=== PATIENT | female | born 1945 | race African-American/Black ===

== ENCOUNTER 2017-01-29 23:37 | Inpatient (IN) | payer OTHER, BC ==
[~2017-01-29] VITALS: Ht 160 cm; Wt 95.7 kg
--- NOTE | ~2017-01-29 | 2DMMODE ---
[facility] [email or web address] [address] 2 D/M-MODE ECHOCARDIOGRAM Name: EMKISHA J Room #: 207-P ADM IN ..#: [id number] Admission: 01/30/17 Attend Phys: Elza Steele MD Discharge: Date of : 43 Date of Service: 01/30/17 1124 Report #: [id number] THIS REPORT FOR: //name// APPROVED REPORT EXAM: Comprehensive 2D, Doppler, and color-flow Echocardiogram Patient Location: Bedside/Room 207 Blood Pressure: 149/85 mmHg HR: 62 bpm Rhythm: NSR Other Information Study Quality: Good Indications Chest Pain Hx: DM, HTN 2D Dimensions RVDd: 40.53 mm LVEF(%): 58.26 (>50%) IVSd: 13.55 (7-11mm) LVOT Diam: 21.88 (18-24mm) LVDd: 44.50 mm PWd: 12.70 (7-11mm) Ascending Aorta: 34.76 mm LVDs: 30.89 (25-40mm) Aortic Root: 33.00 mm Rosado's LVEF: 58.26 % Volumes Left Atrial Volume (Systole) Single Plane 4CH: 82.45 mL Single Plane 2CH: 46.79 mL LA ESV Index: 33.00 mL/m2 Aortic Valve AoV Peak Marco.: 1.26 m/s AO Peak Gr.: 6.36 mmHg LV Max P.44 mmHg LV Max: 1.05 m/s Mitral Valve MV PHT: 104.96 ms MV E Max Marco.: 0.83 m/s E/A Ratio: 0.9 MV A Marco.: 0.97 m/s MV Decel. Time: 361.92 ms [facility] [place] [place] [address] 2 D/M-MODE ECHOCARDIOGRAM Name: KISHA STRICKLAND Room #: 207-[facility] IN [facility].#: [id number] Admission: 01/30/17 Attend Phys: Elza Steele MD Discharge: Date of : 43 Date of Service: 01/30/17 1124 Report #: [id number] TDI E/Lateral E': 22.00 E/Medial E': 16.00 Pulmonary Valve PV Peak Marco.: 0.99 m/s PV Peak Gr.: 3.95 mmHg Tricuspid Valve TR Peak Marco.: 2.28 m/s RAP Estimate: 5.00 mmHg TR Peak Gr.: 20.74 mmHg RVSP: 26.00 mmHg Left Ventricle The left ventricle is normal size. There is normal LV segmental wall motion. Mild concentric left ventricular hypertrophy. Left ventricular systolic function is normal. LVEF is 55-60%. Grade I - abnormal relaxation pattern. Right Ventricle The right ventricle is normal size. The right ventricular systolic function is normal. Atria The left atrium size is normal. The right atrium size is normal. Aortic Valve Aortic valve is mildly calcified. No aortic regurgitation is present. There is no aortic valvular stenosis. Mitral Valve Mitral valve leaflets are normal. Trace mitral regurgitation. Tricuspid Valve The tricuspid valve is normal in structure. There is mild tricuspid regurgitation. The right atrial pressure is estimated at 5 mmHg. Right ventricular systolic pressure is estimated at 26 mmHg. Pulmonic Valve The pulmonary valve is normal in structure. Mild to moderate pulmonic regurgitation. Great Vessels The aortic root is normal in size. IVC is normal in size and collapses >50% with inspiration. [facility] [address] [place] [address] 2 D/M-MODE ECHOCARDIOGRAM Name: KISHA STRICKLAND Room #: 207-P [facility] IN .R.#: [id number] Admission: 01/30/17 Attend Phys: Elza Steele MD Discharge: Date of : 43 Date of Service: 01/30/17 1124 Report #: [id number] Pericardium There is no pericardial effusion. <Conclusion> Mild concentric left ventricular hypertrophy. Grade I diastolic dysfunction LVEF is 55-60%. There is normal LV segmental wall motion. Aortic valve is mildly calcified. No aortic stenosis or regurgitation. Mitral valve leaflets are normal. Trace mitral regurgitation. Pulmonary artery pressure could not be relliably ascertained. There is no pericardial effusion. <ELECTRONICALLY SIGNED> By: Jl Mckeon MD, FACC 01/30/17 1124 1124 1124 Jl Mckeon MD, [facility] /INF
--- NOTE | ~2017-01-29 | EKG ---
[place] [address] [facility] [employer] [place] [address] ELECTROCARDIOGRAM REPORT Name: KISHA STRICKLAND Room #: 207-P ADM IN M.R.#: [id number] Admission: 01/30/17 Attend Phys: Elza Steele MD Discharge: Date of : 43 Report #: [id number] THIS REPORT FOR: //name// 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
--- NOTE | ~2017-01-29 | EKG ---
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
--- NOTE | ~2017-01-29 | CATHLAB ---
[facility] [place] [address] INVASIVE PROCEDURE REPORT Name: EMKISHA Melissa Room #: 207-P [facility] IN [facility]#: [id number] Admission: 01/30/17 Attend Phys: Elza Steele MD Discharge: 02/02/17 Date of : 43 Date of Service: 02/02/17812 Report #: [id number] THIS REPORT FOR: //name// CC: Eder Steele PROCEDURE: Left heart coronary angiography. INDICATIONS: Chest pain, abnormal stress study, unstable angina. DESCRIPTION OF PROCEDURE: The potential benefits and risks of the procedure were discussed at length with the patient who understood. Full written and informed consent was obtained. The patient was brought into the catheterization suite where her right groin was prepped and draped in a sterile fashion. She was sedated with intravenous Versed, 1% Xylocaine was used as local anesthetic. A 6-Congolese sheath was placed in the right femoral artery by the modified Seldinger technique. Left heart catheterization was performed with a 6-Congolese angled pigtail catheter. A single plain ventriculogram was performed in the PARK projection. Pullback gradients were measured across the aortic valve. Selective coronary angiography was performed with a 6-Congolese left and right 4 cm Torie coronary catheter. All diagnostic catheters removed. A hand injection was performed through the right groin sheath with placement of a Mynx device upon removal of the sheath. The patient remained in excellent condition at the conclusion of the procedure with good right groin hemostasis and intact distal pulses. RESULTS: LEFT HEART HEMODYNAMICS: 1. Left ventricular systolic pressure 160. 2. Left ventricular end diastolic pressure of 18. 3. Aortic valve, no gradient was present on pullback across the aortic valve, central aortic pressure 160/70. ANGIOGRAPHY: LEFT VENTRICULOGRAM: Ventriculography demonstrated normal global and regional left ventricular systolic function, mitral regurgitation was absent. Ejection fraction was estimated at 65%. SELECTIVE CORONARY ANGIOGRAPHY: 1. Left main: Left main was large in caliber and normal. 2. Left anterior descending: The left anterior descending was a large vessel that extended to the inferior apex. The LAD exhibited minimal plaquing proximally. 3. Left main gave rise to a moderate sized ramus branch, this vessel appeared to be angiographically normal. 4. The circumflex was large and codominant. Circumflex gave rise to 2 marginal branches. There is minimal midvessel plaquing in the circumflex. Otherwise, [facility] [address] [place] [address] INVASIVE PROCEDURE REPORT Name: KISHA STRICKLAND Room #: 207-P [facility] IN ..#: [id number] Admission: 01/30/17 Attend Phys: Elza Steele MD Discharge: 02/02/17 Date of : 43 Date of Service: 02/02/17 0813 Report #: [id number] the circumflex and its 2 marginal branches were angiographically normal. 5. Right coronary: The right coronary had a high anterior takeoff. There was minimal midvessel plaquing evident; otherwise, the right coronary was normal. SUMMARY: 1. Normal global and regional left ventricular systolic function, mitral regurgitation was absent, ejection fraction of 65%. 2. Normal left main. 3. Minimal plaquing in the coronary tree. This was a codominant circulation. <ELECTRONICALLY SIGNED> By: Jl Mckeon MD, FACC 02/03/17 0810 0813 0928 Jl Mckeon MD, FACC /nt
--- NOTE | ~2017-01-29 | HC ---
[facility] [place] [address] CONSULTATION Name: KISHA STRICKLAND Room #: 207-P ADM IN M.R.#: [id number] Admission: 01/30/17 Attend Phys: Elza Steele MD Discharge: Date of : 43 Report #: [id number] THIS REPORT FOR: //name// CC: Eder Steele REASON FOR CONSULTATION: Chest pain. HISTORY OF PRESENT ILLNESS: The patient is a 71-year-old woman with a history of hypertension, longstanding diabetes. She has a history of recurrent deep venous thrombosis one with pulmonary emboli in 2011 for which she has been maintained on warfarin therapy. Last Monday, she had an episode of chest discomfort. This occurred while she was eating breathlessness and lasted for about 10 minutes. This was not associated with other symptoms. On Monday night around 11:00 p.m. she reported a similar episode of "grinding" chest discomfort. This was not associated with radiation, nausea, vomiting or diaphoresis. She presented to the Emergency Department, was treated with aspirin and nitroglycerin with relief. She denies a history of myocardial infarction. She does have a history of remote congestive heart failure in the . She denies orthopnea or paroxysmal nocturnal dyspnea. No bleeding problems with warfarin. No history of near syncope or syncope. ALLERGIES: PENICILLIN, SULFA, LATEX, TRAMADOL AND CEFTIN. MEDICATIONS: Include warfarin 5 mg daily, metoprolol 25 mg twice daily and aspirin 81 mg daily, metformin 500 mg twice daily, amlodipine 10 mg daily, potassium 20 mEq twice daily, furosemide 40 mg daily, Singulair 10 mg daily, Symbicort 2 puffs twice daily, Flonase, levothyroxine 112 mcg daily. PAST MEDICAL HISTORY: Medical records have been reviewed and include history of hysterectomy, deep venous thrombosis with pulmonary emboli in 2011, 2 years prior to this, she had a deep venous thrombosis, bladder suspension, lumpectomy, knee replacement. SOCIAL HISTORY: Nonsmoker, nondrinker. . FAMILY HISTORY: Notable for mother who had strokes. REVIEW OF SYSTEMS: All systems negative except as that noted above. PHYSICAL EXAMINATION: GENERAL: A pleasant woman in no distress. VITAL SIGNS: Blood pressure is 100/80, heart rate is 73 and regular. She is afebrile, 216 pounds, 5 feet 3 inches tall. HEENT: There are neither xanthelasma, subcutaneous xanthomata, oral mucosal or digital cyanosis or kyphoscoliosis present. CHEST: Clear to auscultation and percussion. [address] [address] CONSULTATION Name: KISHA STRICKLAND Room #: [address] [place] [address] IN M.R.#: [id number] Admission: 01/30/17 Attend Phys: Elza Steele MD Discharge: Date of : 43 Report #: [id number] CARDIOVASCULAR: Regular rate and rhythm with normal S1, S2. No murmurs or rubs. ABDOMEN: Soft and nontender. EXTREMITIES: Without cyanosis, clubbing or edema. Radial pulses are 2+. NEUROLOGIC: She is alert with a nonfocal exam. LABORATORY DATA: EKG normal sinus rhythm, normal tracing. Sodium 141, potassium 4.5, creatinine 0.9. ProBNP of 313, cholesterol 204. LDL 145. INR of 2.5. Her admitting INR was 4.9. Her warfarin has been held. White cell count 8.7, hemoglobin 12.1, hematocrit 36, platelet count 255, hemoglobin A1c of 5.8. Recent two day stress study suggested anterior apical ischemia. IMPRESSION: 1. Chest pain with mixed features for ischemia. 2. Large hiatal hernia. 3. Diabetes. 4. Hypertension. 5. Dyslipidemia. 6. Deep venous thrombosis and pulmonary embolism following back surgery. 7. Asthma. RECOMMENDATIONS: 1. Reverse coagulopathy. 2. Coronary angiography. 3. Addition of statin therapy. I have discussed the angiographic procedure in detail including its associated risks. After a thorough discussion of the procedure, its risks and alternatives and after answering her questions in detail she is agreeable to proceeding. Thank you for asking me to participate in her care. <ELECTRONICALLY SIGNED> By: Jl Mckeon MD, FACC 02/02/17 0805 1745 0745 Jl Mckeon MD, FACC /nt
[~2017-01-29 23:37] MED LIST: ACIDOPHILUS PR1 EACH PO; ALBUTEROL2.5 MG/31 INH; AMLODIPINE BESY10 MG PO; APAP650 PO; ASPIRIN EC325 M1 PO; BACLOFEN 10MG T10 M1 PO; BAYER ASPIRIN325 M1 PO; CENTRUM COMPLE1 EACH PO; CITRACAL + D C1 EACH PO; COLACE100 MG PO; COUMADIN 5 MG TA5 M1 PO; D3 DOTS2000 UNIT PO; EDARBI80 MG PO; ESTER-C 500 MG1 EAC1 PO; FIBER0.52 G1 PO; FLAX SEED OIL1000 MG PO; FLONASE 0.05%50 MCG NASAL; GLUCOPHAGE500 MG PO; GLUCOSAMINE1000 MG PO; HYDROCHLOROTHIA25 M1 PO; IRON PO; IRON325 PO; K-DUR 20 MEQ T20 MEQ PO; LASIX 20 MG TAB20 MG; LASIX 40 MG TAB40 M2 PO; MAGNESIUM/ZINC PO; NORCO 5-325 TA1 EACH PO; OMEGA 3-6-9 CO1 EACH PO; PERCOCET 5-3251 EACH PO; PRILOSEC 20 MG20 MG PO; PROTONIX40 M1 PO; PT DOES NOT KNOW; ROVIN-CF OF TA1 EACH PO; SINGULAIR 10 MG10 M1 PO; SLO-NIACIN500 MG PO; SYMBICORT160 MCG/4. INH; SYNTHROID137 MCG PO; TOPICORT15 G2 TOP; TYLENOL325 MG PO; VALACYCLOVIR1000 MG PO; VENTOLIN HFA INH8 GM INH; VITAMIN B-12500 MCG PO; VITAMIN B12 PO; ZYRTEC 10 MG TA10 M1 PO; [UNRECOGNIZED DRUG - SUPPLY] MC
[2017-01-29] MEDS ORDERED: MEDROLDOSEPACK PO (23:44)
[2017-01-30 00:19] LABS: HEMATOCRIT 36.8 % (37.0-47.0); HEMOGLOBIN 12.1 gm/dL (12.0-15.0); PLATELET COUNT 255 thou/uL (150-400); RBC 3.91 mil/uL (4.20-5.00); WBC 8.7 thou/uL (4.0-11.0)
[2017-01-30 00:21] LABS: MANUAL DIFF YES
[2017-01-30 00:43] LABS: APTT 36.1 Seconds (24.5-32.8); PROTIME 50.2 Seconds (9.3-11.4)
[2017-01-30 00:49] LABS: INR 4.9
[2017-01-30 00:52] LABS: ALBUMIN 3.4 g/dL (3.4-5.0); ALKALINE PHOSPHATASE 59 U/L (46-116); ANION GAP 7 mmol/L (7-16); CALCIUM 10.2 mg/dL (8.5-10.1); CHLORIDE 101 mmol/L (98-107); CK-MB MASS 1.3 ng/mL (<0.5-3.6); CO2 29 mmol/L (21-32); CREATININE 0.9 mg/dL (0.6-1.3); GLUCOSE 130 mg/dL (70-99); MAGNESIUM 2.1 mg/dL (1.8-2.4); NT-PRO BRAIN NAT PEPTIDE 313 pg/mL (<300); POTASSIUM 4.5 mmol/L (3.5-5.1); SGOT 11 U/L (15-37); SGPT 21 U/L (30-65); SODIUM 137 mmol/L (136-145); TOTAL BILIRUBIN 0.2 mg/dL (<0.1-1.0); TOTAL PROTEIN 6.6 g/dL (6.4-8.2); TROPONIN-I < 0.04 ng/mL (<0.04-0.07)
[2017-01-30 01:06] LABS: BUN 24 mg/dL (7-18)
[2017-01-30] MEDS ORDERED: LOPRESSOR25 PO (01:55)
[2017-01-30] MEDS ORDERED: CETIRIZINE HCL10 MG PO (02:00)
[2017-01-30] MEDS ORDERED: ASPIR 8181 MG PO (02:01)
[2017-01-30] MEDS ORDERED: LEVOTHYROXIN0.112 M1 PO (02:04)
[2017-01-30 02:52] LABS: ABSOLUTE NEUTROPHILS 6.4 thou/uL (1.4-8.2); ANISOCYTOSIS 1+; ATYPICAL LYMPHS 1 %; TOTAL CELL COUNT 100
[2017-01-30 06:42] LABS: CHOLESTEROL 204 mg/dL (<200); HDL CHOLESTEROL 51 mg/dL (>40); LDL CHOLESTEROL 145 mg/dL (<100); TRIGLYCERIDE 41 mg/dL (<150); VLDL 8 mg/dL (<40)
[2017-01-30 06:43] LABS: SERUM ASSESSMENT Clear
[2017-01-30 23:11] LABS: GLYCOHEMOGLOBIN (HGB A1C) 5.8 % (4.8-5.6)
[2017-01-31 04:18] LABS: INR 4.4; PROTIME 45.2 Seconds (9.3-11.4)
[2017-01-31 09:47] LABS: URINE BILIRUBIN NEGATIVE (Negative); URINE BLOOD NEGATIVE (Negative); URINE COLOR YELLOW; URINE GLUCOSE-RANDOM* NEGATIVE (Negative); URINE KETONES NEGATIVE (Negative); URINE LEUKOCYTES-REFLEX NEGATIVE (Negative); URINE PROTEIN (DIPSTICK) NEGATIVE (Negative); URINE SPECIFIC GRAVITY 1.015 (1.003-1.035); URINE UROBILINOGEN 0.2 E.U./dl (0.2-1.0)
[2017-02-01 03:53] LABS: PROTIME 25.5 Seconds (9.3-11.4)
[2017-02-01 03:54] LABS: INR 2.5
[2017-02-02 04:01] LABS: INR 1.6; PROTIME 16.1 Seconds (9.3-11.4)
== END 2017-02-02 16:38 | disposition home or self-care (01) | DRG 392 ==
LOC: ER 23:37 → 2N 01-30 01:15 → EROBS 01-30 01:15 → 2N 01-30 01:40
PROVIDERS: Emergency Medicine; Nurse Practitioner Acute Care
DX: K21.9 Gastro-esophageal reflux disease without esophagitis (principal); I10 Essential (primary) hypertension; E11.9 Type 2 diabetes mellitus without complications; J45.909 Unspecified asthma, uncomplicated; Z86.718 Personal history of other venous thrombosis and embolism; Z86.711 Personal history of pulmonary embolism; Z90.710 Acquired absence of both cervix and uterus; Z88.2 Allergy status to sulfonamides; Z88.8 Allergy status to other drugs, medicaments and biological substances; Z88.0 Allergy status to penicillin; Z91.040 Latex allergy status; Z82.49 Family history of ischemic heart disease and other diseases of the circulatory system; Z83.3 Family history of diabetes mellitus; Z80.8 Family history of malignant neoplasm of other organs or systems; Z82.3 Family history of stroke
CPT/HCPCS: 10081

== ENCOUNTER → 2019-02-27 | Outpatient (CLI) | payer OTHER, BC ==
[~2019-02-27] MED LIST changes: +ASPIR 8181 MG PO; +CETIRIZINE HCL10 MG PO; +LEVOTHYROXIN0.112 M1 PO; +LOPRESSOR25 PO; +MEDROLDOSEPACK PO
== END ==
LOC: RAD 11:21
DX: J45.998 Other asthma (principal); J98.4 Other disorders of lung; K44.9 Diaphragmatic hernia without obstruction or gangrene

== ENCOUNTER → 2019-03-05 | Outpatient (CLI) | payer OTHER, BC ==
--- NOTE | 2019-03-05 11:38 | 2DMMODE ---
[facility] [place] [address] 2 D/M-MODE ECHOCARDIOGRAM Name: KISHA STRICKLAND Room #: [facility]#: [id number] ������������� Admission: 03/05/19 ������������� Attend Phys: Supa Cheatham, Discharge: ��� ������������� ��� Date of : 43 Date of Service: 03/05/19 1138 �� Report #: [id number] �������� ��������������������������������������������[id number] THIS REPORT FOR: //name// APPROVED REPORT Study performed: 03/05/2019 08:56:37 EXAM: Comprehensive 2D, Doppler, and color-flow Echocardiogram Patient Location: Out-Patient Status: routine BSA: 1.90 HR: 68 bpm BP: 140/98 mmHg Rhythm: NSR Other Information Study Quality: Excellent Indications Short of breath, pulmonary HTN. Hx: HTN, DM. 2D Dimensions RVDd: 40.10 mm IVSd: 12.00 (7-11mm) LVOT Diam: 22.35 (18-24mm) LVDd: 45.48 mm PWd: 12.00 (7-11mm) Ascending Ao: 33.05 (22-36mm) LVDs: 32.60 (25-40mm) Aortic Root: 33.08 mm Volumes Left Atrial Volume (Systole) Single Plane 4CH: 66.78 mL Single Plane 2CH: 76.82 mL LA ESV Index: 40.00 mL/m2 Aortic Valve AoV Peak Marco.: 1.24 m/s AO Peak Gr.: 6.13 mmHg LVOT Max P.81 mmHg LVOT Max V: 0.98 m/s ADRIANA Vmax: 3.09 cm2 Mitral Valve E/A Ratio: 1.3 MV Decel. Time: 192.06 ms MV E Max Marco.: 1.21 m/s [facility] [employer] [address] [address] 2 D/M-MODE ECHOCARDIOGRAM Name: YORDANKARLEYKISHA MIR Room #: [facility]#: [id number] ������������� Admission: 03/05/19 ������������� Attend Phys: Supa Cheatham, Discharge: ��� ������������� ��� Date of : 43 Date of Service: 03/05/19 1138 �� Report #: [id number] �������� ��������������������������������������������[id number] MV A Marco.: 0.96 m/s MV PHT: 55.70 ms IVRT: 96.89 ms Pulmonary Valve PV Peak Marco.: 0.85 m/s PV Peak Gr.: 2.86 mmHg Pulmonary Vein P Vein S: 0.41 m/s P Vein A: 0.27 m/s P Vein D: 0.46 m/s P Vein A Dur.: 92.3 msec P Vein S/D Ratio: 0.89 Tricuspid Valve TR Peak Marco.: 3.12 m/s RAP Estimate: 10.00 mmHg TR Peak Gr.: 38.88 mmHg Left Ventricle The left ventricle is normal size. There is normal LV segmental wall motion. Mild concentric left ventricular hypertrophy. Left ventricular systolic function is normal. LVEF is 55-60%. Moderate diastolic dysfunction is present (pseudonormal filling). Right Ventricle The right ventricle is normal size. The right ventricular systolic function is normal. Atria Left atrium is mildly dilated. Right atrium is at the upper limits of normal. Aortic Valve Aortic valve is trileaflet, mildly calcified. No aortic regurgitation is present. There is no aortic valvular stenosis. Mitral Valve The mitral valve is normal in structure. Mild mitral regurgitation. Tricuspid Valve The tricuspid valve is normal in structure. Mild to moderate tricuspid regurgitation. Estimated PAP is 45mmHg. Pulmonic Valve The pulmonary valve is normal in structure. Mild pulmonic regurgitation. [address] [address] 2 D/M-MODE ECHOCARDIOGRAM Name: KISHA STRICKLAND Room #: REG [place]#: [id number] ������������� Admission: 03/05/19 ������������� Attend Phys: Supa Cheatham, Discharge: ��� ������������� ��� Date of : 43 Date of Service: 03/05/19 1138 �� Report #: [id number] �������� ��������������������������������������������[id number] Great Vessels The aortic root is normal in size. The ascending aorta is normal in size. IVC is normal in size and collapses >50% with inspiration. Pericardium Trivial pericardial effusion noted. <Conclusion> The left ventricle is normal size. Mild concentric left ventricular hypertrophy. Left ventricular systolic function is normal. Moderate diastolic dysfunction is present (pseudonormal filling). The right ventricle is normal size. Left atrium is mildly dilated. Aortic valve is trileaflet, mildly calcified. Mild mitral regurgitation. Mild to moderate tricuspid regurgitation. Estimated PAP is 45mmHg. ��������������������������������������������� <ELECTRONICALLY SIGNED> ���������������������������������������� By: Tyrone Andrade MD ��������������������������������������������� 03/05/19 1138 1138 1138 Tyrone Andrade MD /INF
== END ==
LOC: CV 08:31
DX: I08.8 Other rheumatic multiple valve diseases (principal); I11.9 Hypertensive heart disease without heart failure; I27.20 Pulmonary hypertension, unspecified; E11.9 Type 2 diabetes mellitus without complications

== ENCOUNTER → 2019-03-12 | Outpatient (CLI) | payer OTHER, BC | LOC: CAT 10:37 | DX: J98.4 Other disorders of lung (principal); J98.11 Atelectasis; I25.10 Atherosclerotic heart disease of native coronary artery without angina pectoris; I70.0 Atherosclerosis of aorta; K44.9 Diaphragmatic hernia without obstruction or gangrene; Z88.8 Allergy status to other drugs, medicaments and biological substances; Z88.2 Allergy status to sulfonamides; Z88.0 Allergy status to penicillin; Z91.011 Allergy to milk products; M25.78 Osteophyte, vertebrae ==

== ENCOUNTER 2020-07-06 14:45 | Inpatient (IN) | payer OTHER, BC ==
[~2020-07-06] VITALS: Ht 160 cm; Wt 69.9 kg
[2020-07-06 14:49] VITALS: BP 102/62
[2020-07-06 15:43] LABS: ABSOLUTE NEUTROPHILS 5.1 thou/uL (1.4-8.2); BASOPHILS 0.8 % (0.0-2.0); EOSINOPHILS 0.7 % (0.0-3.0); HEMATOCRIT 30.7 % (37.0-47.0); HEMOGLOBIN 10.3 gm/dL (12.0-15.0); LYMPHOCYTES 11.6 % (24.0-44.0); MCH 34.4 pg (26.0-34.0); MCHC 33.5 g/dL (28.0-37.0); MCV 102.8 fL (80.0-100.0); MONOCYTES 3.4 % (1.0-8.0); PLATELET COUNT 247 thou/uL (150-400); POLYS 83.5 % (36.0-66.0); RBC 2.98 mil/uL (4.20-5.00); WBC 6.1 thou/uL (4.0-11.0)
[2020-07-06 15:53] LABS: CALCIUM 9.4 mg/dL (8.5-10.1); CREATININE 0.7 mg/dL (0.6-1.0); POTASSIUM 4.3 mmol/L (3.5-5.1)
[2020-07-06 15:59] LABS: ALBUMIN 2.2 g/dL (3.4-5.0); TOTAL BILIRUBIN 0.6 mg/dL (0.2-1.0)
[2020-07-06 17:54] LABS: INR 1.3
[2020-07-06 20:15] VITALS: BP 106/63
[2020-07-06 20:34] VITALS: BP 105/54
[2020-07-06 21:15] VITALS: BP 120/65
--- NOTE | 2020-07-07 00:48 | NUR ---
PT CAME UP TO FLOOR AT AROUND 2100 HOURS, SHE IS ALERT AND ORIENTED X 4. ANSWERED ALL ADMISSION QUESTIONS. PT HAS EXTREME SOA EVEN ON 2L/NC, BUT SHE IS SATTING AT 100%. NO FEVER. 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 SKIN IS INTACT. IV ABTS STARTED WELL FLUIDS AND STEROIDS. PT DENIES PAIN, SHE ONLY C/O DYSPEPSIA, MEDICATION ORDERS IN PLACE.BSC COMMODE PROVIDED. ADMIT ACCUCHECK WAS 104. PT PLACED ON FALL PREC AND EDUCATION PROVIDED. SHE EXPRESSES UNDERSTANDING. WILL CONTINUE WITH POC TILL EOS.
[2020-07-07 04:25] VITALS: BP 109/69
[2020-07-07 05:18] LABS: HEMOGLOBIN 10.3 gm/dL (12.0-15.0); MCH 34.5 pg (26.0-34.0); MCHC 33.1 g/dL (28.0-37.0); MCV 104.3 fL (80.0-100.0); RBC 2.97 mil/uL (4.20-5.00); RDW 15.7 % (10.5-14.5); WBC 6.5 thou/uL (4.0-11.0)
[2020-07-07 05:33] LABS: CALCIUM 9.6 mg/dL (8.5-10.1); CREATININE 0.7 mg/dL (0.6-1.0); POTASSIUM 4.5 mmol/L (3.5-5.1)
[2020-07-07 08:15] VITALS: BP 121/66
--- NOTE | 2020-07-07 15:16 | NUR ---
ASSUMED PATIENT CARE AT 0700. A/O X4. PROGRESSING TOWARD POC. WILL DC TO [facility] WITH HH SOON.
--- NOTE | 2020-07-07 15:54 | NUR ---
CM called pt's room to complete initial assessment and discuss d/c planning. Pt A&O. Pt lives at home w/spouse. Pt has 3 adult dtrs that are supportive and help out when needed. Pt states she is active, "I have a flower garden, but I didn't do anything with this year" d/t failing health. Pt drives, is independent w/ADLs. Pt has walker, cane and nebulizer. Pt has hx w/[facility] and SNF. Pt's goal at d/c is to return home w/spouse whom she said is in good health. CM to cont to follow to assist as needed. -Note completed by Dana Perera
--- NOTE | 2020-07-07 16:08 | EKG ---
[facility] [place] [address] ELECTROCARDIOGRAM REPORT Name: KISHA STRICKLAND Room #: 353-P ADM IN M.R.#: [id number] Admission: 07/06/20 Attend Phys: Alhaji Oquendo MD Discharge: Date of : 43 Report #: [id number] THIS REPORT FOR: cc: Eder Hills MD, David A. MD Couchonnal, Luis F. 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
--- NOTE | 2020-07-07 18:58 | NUR ---
ASSUMED PATIENT CARE AT 0700. A/O X4. GENERLIZED WEAKNESS. VSS. AFEBRILE. TOLERATED ON 2L/NC. SLOWLY TOWARDS POC GOALS.
[2020-07-07 19:35] VITALS: BP 109/67
[2020-07-08 04:45] VITALS: BP 99/68
[2020-07-08 05:35] LABS: HEMATOCRIT 27.3 % (37.0-47.0); HEMOGLOBIN 9.1 gm/dL (12.0-15.0); MCH 34.7 pg (26.0-34.0); MCHC 33.1 g/dL (28.0-37.0); MCV 104.6 fL (80.0-100.0); RBC 2.61 mil/uL (4.20-5.00); RDW 15.7 % (10.5-14.5); WBC 7.6 thou/uL (4.0-11.0)
[2020-07-08 05:50] LABS: CALCIUM 9.1 mg/dL (8.5-10.1); CREATININE 0.8 mg/dL (0.6-1.0); POTASSIUM 4.4 mmol/L (3.5-5.1)
--- NOTE | 2020-07-08 06:28 | NUR ---
Assisted to commode after shift change , she does get short of breath with exertion. Maintaining O2 sat in the upper 90's on 3L/NC. Pt. also c/o that she still has chest tightness that's been going on for days. Bed alarm on for safety and SCD's in place. C/O upset stomach and requested for nausea med and immodium . Zofran IV given with good relief. Immodium given per her request. She stated when she's up to commode , she has no control of her bowels due to procedure last December. No other concerns voiced.
[2020-07-08 07:22] VITALS: BP 123/71
--- NOTE | 2020-07-08 14:21 | NUR ---
SW reviewed chart and spoke with nursing and attending physician. Pt remains in Enhanced Isolation to r/o COVID-19. Awaiting second COVID test results. Pt is afebrile and on 3L of O2. Pt is on IV abx and IV steroids. Plan is for pt to discharge home when medically stable. SW is following to assist as needed with discharge planning.
[2020-07-08 16:06] VITALS: BP 93/55
--- NOTE | 2020-07-08 16:42 | NUR ---
ASSUMED CARE OF PT AT 0700. PT AOX4 IN NO ACUTE DISTRESS. 3L NC - COARSE LUNG SOUNDS - SOA W/ MINIMAL EXERTION. VITALS STABLE. GOOD APEPTITE. CALLS APPROPRIATELY. COVID RESULTS PENDING.
[2020-07-08 19:44] VITALS: BP 122/69
[2020-07-08 20:20] VITALS: BP 149/70
[2020-07-09 03:30] VITALS: BP 113/61
--- NOTE | 2020-07-09 07:54 | NUR ---
Slept intermittently during the night. O2 at 3L/NC , still gets short of breath with minimal exertion and some chest tightness . Up with assist to commode , very weak and gets tired easily. Afebrile. Decrease appetite per pt. Bed alarm on.
[2020-07-09 08:23] VITALS: BP 113/71
--- NOTE | 2020-07-09 13:19 | NUR ---
ADINA reviewed chart and spoke with nursing and attending physician. Pt remains in Enhanced Isolation to r/o COVID-19. Therapy evals are on hold until results of repeat COVID test are available. Pt is afebrile and on 3L of O2. Pt is on IV abx and IV steroids. SW spoke with pt via phone. Pt is not normally on O2 at home. Pt has used [facility] in the past and would be agreeable with HH if needed. Pt's PCP is Dr. Eder Hills. ADINA is following to assist as needed with discharge plannin.
[2020-07-09 16:02] VITALS: BP 116/62
--- NOTE | 2020-07-09 16:29 | NUR ---
PT'S COVID WAS NEGATIVE FROM 07/06/20 TEST, PT IS ON O2 3L/MIN/NC, BUT PT HAS SOB WITH ACTIVITIES, AND PT STILL FEELS WEAK, RN HAS REPORTED TO AROLDO JEFFREY , NEW ORDER , PT HAS SECOND COVID TEST DONE AT 1520PM.
--- NOTE | 2020-07-09 16:34 | NUR ---
PT IS A&OX3, PT IS O2 O2 3L/MIN/NC, PT'S VS ARE STABLE, PT IS CONTIUNING IV ABX, PT HAS SOB WITH ACTIVIES, PT DEIES PAIN AT THIS TIME.
[2020-07-09 19:47] VITALS: BP 124/69
[2020-07-10 04:42] VITALS: BP 123/49
[2020-07-10 05:17] LABS: HEMATOCRIT 30.1 % (37.0-47.0); HEMOGLOBIN 9.8 gm/dL (12.0-15.0); MCH 34.2 pg (26.0-34.0); MCHC 32.7 g/dL (28.0-37.0); MCV 104.5 fL (80.0-100.0); RBC 2.88 mil/uL (4.20-5.00); RDW 15.5 % (10.5-14.5); WBC 7.2 thou/uL (4.0-11.0)
[2020-07-10 05:27] LABS: CALCIUM 9.3 mg/dL (8.5-10.1); CREATININE 0.7 mg/dL (0.6-1.0); POTASSIUM 4.5 mmol/L (3.5-5.1)
[2020-07-10 07:21] VITALS: BP 134/74
--- NOTE | 2020-07-10 07:38 | NUR ---
Pt. stated she slept fair during the night. Still has generalized weakness and gets short of breath with minimal exertion.Up with assist to commode. Urine sample sent to lab this am. O2 at 3L/NC and maintaining O2 sat in the mid to upper 90's. H1N1 swab sent to lab this am. Pt. informed that a sputum sample is needed , sterile cup provided. Pt. also verbalized she still does not have much appetite.
[2020-07-10 08:15] LABS: URINE BILIRUBIN NEGATIVE (Negative); URINE BLOOD NEGATIVE (Negative); URINE CLARITY CLEAR; URINE COLOR YELLOW; URINE GLUCOSE-RANDOM* NEGATIVE (Negative); URINE KETONES NEGATIVE (Negative); URINE LEUKOCYTES NEGATIVE (Negative); URINE NITRITE NEGATIVE (Negative); URINE PROTEIN (DIPSTICK) TRACE (Negative); URINE SPECIFIC GRAVITY 1.025 (1.005-1.035)
[2020-07-10 09:47] VITALS: BP 122/52
--- NOTE | 2020-07-10 14:11 | NUR ---
SW reviewed chart and spoke with nursing. Pt remains in Enhanced Isolation to r/o COVID-19. Repeat test is pending. Pt is afebrile and requiring 2-3 L of O2. Pt is on IV lasix, IV abx, IV steroids. Cardiology consulted. Therapy evals ordered and on hold until COVID results are available. Pt may transfer off 3W if results are negative. Pt is not normally on O2 at home and will need rest/exercise oximetry prior to discharge. ADINA is following to assist as needed with discharge planning.
[2020-07-10 15:05] VITALS: BP 118/65
[2020-07-10 16:06] LABS: IgA 44 mg/dL (64-422); IgG 757 mg/dL (586-1602); IgM 13 mg/dL (26-217)
--- NOTE | 2020-07-10 17:57 | NUR ---
ASSUMED PATIENT CARE AT 0700. A/O X4. GENERLIZED WEAKNESS. UP WITH ASSISTED. TITRATED O2 TO 2L. SOLWLY TOWARDS POC GOALS.
[2020-07-10 19:39] VITALS: BP 111/65
--- NOTE | 2020-07-10 20:09 | NUR ---
1900 assumed care of pt. 1999 BASELINE ASSESSMENT COMPLETED, PT RESTING QUIETLY ALERT AND ORIENTED, RESP UNLABORED SEE ASSESSMENT FOR MORE DETAIL.
[2020-07-10 23:06] LABS: HIV ANTIBODY Non Reactive (Non Reactive)
[2020-07-11 06:14] VITALS: BP 112/71
[2020-07-11 08:18] VITALS: BP 125/70
--- NOTE | 2020-07-11 12:15 | 2DMMODE ---
[facility] [place] [address] 2 D/M-MODE ECHOCARDIOGRAM Name: KISHA STRICKLAND Room #: 353-P ADM IN M.R.#: [id number] Admission: 07/06/20 Attend Phys: Alhaji Oquendo MD Discharge: Date of : 43 Report #: [id number] THIS REPORT FOR: cc: Eder Hills MD, David A. MD Lammoglia, Francisco J. MD ~ APPROVED REPORT Study performed: 07/11/2020 09:36:37 EXAM: Comprehensive 2D, Doppler, and color-flow Echocardiogram Patient Location: Bedside Room #: 353 BSA: 1.73 HR: 71 bpm BP: 112/71 mmHg Rhythm: NSR Other Information Study Quality: Good Indications Diabetes Dyspnea Hypertension/HDD Hx PE 2D Dimensions RVDd: 37.01 mm IVSd: 10.82 (7-11mm) LVOT Diam: 20.91 (18-24mm) LVDd: 33.13 mm PWd: 12.61 (7-11mm) Ascending Ao: 32.64 (22-36mm) LVDs: 21.92 (25-40mm) Aortic Root: 30.20 mm IVC: 17.00 mm Volumes Left Atrial Volume (Systole) Single Plane 4CH: 113.63 mL Single Plane 2CH: 64.91 mL LA ESV Index: 53.00 mL/m2 Aortic Valve AoV Peak Marco.: 1.14 m/s AO Peak Gr.: 5.16 mmHg LVOT Max P.66 mmHg [facility] [address] [address] 2 D/M-MODE ECHOCARDIOGRAM Name: KISHA STRICKLAND Room #: 353-P [facility] IN M.R.#: [id number] Admission: 07/06/20 Attend Phys: Alhaji Oquendo MD Discharge: Date of : 43 Report #: [id number] LVOT Max V: 0.96 m/s ADRIANA Vmax: 2.89 cm2 Mitral Valve E/A Ratio: 2.9 MV Decel. Time: 225.68 ms MV E Max Marco.: 1.14 m/s MV A Marco.: 0.39 m/s MV PHT: 65.45 ms IVRT: 86.51 ms Pulmonary Valve PV Peak Marco.: 0.79 m/s PV Peak Gr.: 2.48 mmHg Pulmonary Vein P Vein S: 0.21 m/s P Vein A: 0.22 m/s P Vein D: 0.52 m/s P Vein A Dur.: 107.3 msec P Vein S/D Ratio: 0.40 Tricuspid Valve TR Peak Marco.: 3.46 m/s RAP Estimate: 5.00 mmHg TR Peak Gr.: 47.75 mmHg PA Pressure: 53.00 mmHg Left Ventricle The left ventricle is normal size. There is normal LV segmental wall motion. Mild concentric left ventricular hypertrophy. The left ventricular systolic function is normal. The left ventricular ejection fraction is within the normal range. LVEF is 60%. Severe diastolic dysfunction is present (restrictive filling). Right Ventricle The right ventricle is normal size. The right ventricular systolic function is normal. Atria Left atrium is moderately dilated. Right atrium is at the upper limits of normal. Aortic Valve Aortic valve is mildly calcified. No aortic regurgitation is present. There is no aortic valvular stenosis. Mitral Valve The mitral valve is normal in structure. Trace mitral regurgitation. No evidence of mitral valve stenosis. [facility] [address] [place] [address] 2 D/M-MODE ECHOCARDIOGRAM Name: KISHA STRICKLAND Room #: 353-P [facility] IN .R.#: [id number] Admission: 07/06/20 Attend Phys: Ahlaji Oquendo MD Discharge: Date of : 43 Report #: [id number] Tricuspid Valve The tricuspid valve is normal in structure. Mild to moderate tricuspid regurgitation. PAP is estimated at 53 mmHg. Pulmonic Valve The pulmonary valve is normal in structure. Mild pulmonic regurgitation. Great Vessels The aortic root is normal in size. IVC is normal in size and collapses >50% with inspiration. Pericardium Trace pericardial effusion noted. Also present on previous echo 03/05/2019. <Conclusion> The left ventricle is normal size. LVEF is 60%. The left ventricle is normal size. LVEF is 60%. Left atrium is moderately dilated. Aortic valve is mildly calcified. The mitral valve is normal in structure. Trace mitral regurgitation. The tricuspid valve is normal in structure. Mild to moderate tricuspid regurgitation. PAP is estimated at 53 mmHg. The pulmonary valve is normal in structure. Mild pulmonic regurgitation. Trace pericardial effusion noted. Also present on previous echo 03/05/2019. <ELECTRONICALLY SIGNED> By: Gio Sheikh MD 07/11/20 1215 1215 1215 Gio Sheikh MD /INF
--- NOTE | 2020-07-11 14:37 | NUR ---
PT REPORTS CONTINUING TO FEEL WEAK. ENCOURAGED TO CONTINUE ACTIVITY TOLERATED. PT UP TO CHAIR FOR MUCH OF SHIFT. RESTING FREQUENTLY BETWEEN MEALS AND CARES. CALLS FOR ASSIST APPROPRIATELY. FALL PRECAUTIONS IN PLACE. PT EXHIBITING DECREASED APPETITE THIS SHIFT. OFFERED FOOD CHOICES TO ENCOURAGE NUTRITION.
[2020-07-11 15:10] VITALS: BP 104/63
[2020-07-11 19:36] VITALS: BP 127/83
--- NOTE | 2020-07-12 00:40 | NUR ---
1900 ASSUMED CARE OF PT AFTER BEDSIDE REPORT. 2029 BASELINE ASSESSMENT COMPLETED, SEE ASSESSMENT, FALL PRECAUTIONS IN PLACE, SCDS IN PLACE WILL CONTINUE TO MONITOR. [address] BROUGHT TO PT BY FAMILY AND PT ATE SOME OF IT FOR HS SNACK.
[2020-07-12 08:20] VITALS: BP 123/73
--- NOTE | 2020-07-12 11:52 | NUR ---
PT CARE ASSUMMED AT 0700, PT ALERT AND ORIENTED X4, DENIES CHEST PAIN, NAUSEA AND VOMITTING. PT IS ON 2L OF NC, NO SIGNS OF DISTRESS. PT IS UP TO COMMODE WITH 1 ASSIST, CONTINUE TO BE WEAK. CALL LIGHT AND TABLE IN REACH. BED AT LOWEST, WILL CONTINUE TO MONITOR.
[2020-07-12 19:25] VITALS: BP 110/46
[2020-07-13 06:07] VITALS: BP 114/64
[2020-07-13 08:00] VITALS: BP 101/64
--- NOTE | 2020-07-13 08:11 | NUR ---
Pt. stated she slept well during the night. Verbalized breathing is getting better , she's getting her strength back little by little and getting her appetite back too. Afebrile.Up with assist to commode. Making progress towards care plan goals.
[2020-07-13 11:11] VITALS: BP 100/57
--- NOTE | 2020-07-13 11:47 | NUR ---
PT CARE ASSUMED AT 0700, PT ALERT AND ORIENTED X4, PT DENIES ANY PAIN. P[T CLEANUP, GOWN AND BED CHANGED. PT IS UP IN THE CHAIR. CHAIR ALARM ON. PT 2ND COVID CAME BACK NEGATIVE, PRAKASH AWARE. PT IS OFF ISOLATION. HOUSE SUPIVISOR MADE AWAY. WAITING FOR A BED SURG BED FOR PT. CALL LIGHT AND TABLE WITHIN REACH. WILL CONTINUE TO MONITOR.
--- NOTE | 2020-07-13 14:01 | NUR ---
SW reviewed chart and spoke with nursing and attending physician. Pt remains in Enhanced Isolation to r/o COVID-19. Repeat tests are pending. Pt may transfer off 3W pending test results. SW spoke with pt via phone. Pt states she is feeling better today. PT/OT to work with pt today. SW discussed possible discharge needs with pt: post-acute placement v. home with HH. Pt also asked about outpatient therapy. SW discussed the differences in levels of care. Pt verbalized understanding. Pt has been to [facility] in the past and used [facility]. Pt states she does not want to be in a facility if her family cannot come see her. SW explained visitor restrictions for SNF. SW explained that therapy will evaluate her today and assist with recommendation for discharge needs. Pt verbalized understanding. SW is following to assist as needed with discharge planning.
[2020-07-13 15:14] VITALS: BP 94/58
[2020-07-13 20:20] VITALS: BP 110/76
[2020-07-13 23:06] LABS: HISTOPLASMA MYCELIAL-ID Negative (Negative)
--- NOTE | 2020-07-14 04:16 | NUR ---
PATIENT TRANSFERED TO THE UNIT AT AROUND 0020. ASSESSMENT DONE WNL.PATIENT IS ON 1L OF OXYGEN. NO SOA OR DISTRESS NOTED THIS SHIFT. PATIENT ASLEEP AT THIS TIME BREATHING REGULAR AND UNLABOURED.
[2020-07-14 06:30] VITALS: BP 123/83
[2020-07-14 07:20] VITALS: BP 120/78
[2020-07-14 10:11] VITALS: BP 120/78
[2020-07-14 11:05] LABS: HEMATOCRIT 34.6 % (37.0-47.0); HEMOGLOBIN 11.1 gm/dL (12.0-15.0); MCH 33.3 pg (26.0-34.0); MCHC 32.2 g/dL (28.0-37.0); MCV 103.4 fL (80.0-100.0); RBC 3.34 mil/uL (4.20-5.00); RDW 15.7 % (10.5-14.5); WBC 7.4 thou/uL (4.0-11.0)
[2020-07-14 11:15] LABS: CALCIUM 9.9 mg/dL (8.5-10.1); CREATININE 0.6 mg/dL (0.6-1.0); POTASSIUM 3.7 mmol/L (3.5-5.1)
[2020-07-14] MEDS ORDERED: AZITHROMYCIN500 M1 IV (13:38)
[2020-07-14] MEDS ORDERED: ENOXAPARIN30 MG/0.1 SUBQ (13:38)
[2020-07-14] MEDS ORDERED: AZACTAM 1 GM VIA1 G1 IV (13:38)
[2020-07-14] MEDS ORDERED: PREDNISONE 20 M20 M1 PO (13:38)
--- NOTE | 2020-07-14 15:41 | NUR ---
PT HAS BEEN ACCEPTED TO [facility] ACUTE INPATIENT [facility]. CARE TEAM INDICATED SHE IS MEDICALLY STABLE TO DC THIS DAY. PT IS AWARE AND AGREEABLE. CM SPOKE WITH PT'S SPOUSE TRACY IS ALSO AWARE AND AGREEABLE. PT TO DC TO [facility] THIS AFTERNOON.
--- NOTE | 2020-07-14 16:05 | NUR ---
PATIENT ACCEPTED BY 5N FOR ACUTE REHAB STAY. TRAILER STEERER SPOKE WITH PATIENT ABOUT EXPECTATION AND REQUIREMENTS. GAVE REHAB BROCHURE. PATIENT TO ADMIT TO [facility] THIS AFTERNOON, 07/14/20. THANK YOU FOR THIS REFERRAL.
--- NOTE | 2020-07-14 18:36 | NUR ---
Assumed pt care this am, stayed on the recliner for most of the day. diet and medeications are well tolerated. ONe IV removed and I kept since IV abx are to be continued. POC followed with no signs or verbalizations of distress noted. Report given to Melba david pt is to dc and go to room 550.
[2020-07-15 21:05] LABS: HISTOPLASMA MYCELIAL-CF Negative (Neg:<1:2)
== END 2020-07-14 18:43 | DRG 193 ==
LOC: ER 14:45 → EROBS 17:27 → 3W 17:27 → 4W 07-14 02:15
PROVIDERS: Internal Medicine; Internal Medicine Pulmonary Disease; Specialist; Student in an Organized Health Care Education/Training Program; ADMIT Hospitalist; ATTEND Hospitalist
DX: J15.9 Unspecified bacterial pneumonia (principal); J96.01 Acute respiratory failure with hypoxia; E03.9 Hypothyroidism, unspecified; M19.90 Unspecified osteoarthritis, unspecified site; E11.9 Type 2 diabetes mellitus without complications; I10 Essential (primary) hypertension; R53.81 Other malaise; J45.909 Unspecified asthma, uncomplicated; I95.9 Hypotension, unspecified; G89.29 Other chronic pain; D50.9 Iron deficiency anemia, unspecified; K58.9 Irritable bowel syndrome, unspecified; E73.9 Lactose intolerance, unspecified; B96.0 Mycoplasma pneumoniae [M. pneumoniae] as the cause of diseases classified elsewhere; B34.9 Viral infection, unspecified; Z96.652 Presence of left artificial knee joint; Z20.828 Contact with and (suspected) exposure to other viral communicable diseases; Z90.710 Acquired absence of both cervix and uterus; Z86.718 Personal history of other venous thrombosis and embolism; Z86.711 Personal history of pulmonary embolism; Z79.01 Long term (current) use of anticoagulants; Z79.82 Long term (current) use of aspirin; Z79.899 Other long term (current) drug therapy; Z88.0 Allergy status to penicillin; Z88.2 Allergy status to sulfonamides; Z88.8 Allergy status to other drugs, medicaments and biological substances; Z91.040 Latex allergy status
CPT/HCPCS: 10879

== ENCOUNTER → 2020-07-06 | Outpatient (CLI) | payer OTHER, BC | LOC: RAD 13:32 | PROVIDERS: ATTEND Internal Medicine | DX: R91.8 Other nonspecific abnormal finding of lung field (principal); J45.50 Severe persistent asthma, uncomplicated ==

== ENCOUNTER 2020-07-14 13:06 | Inpatient (IN) | payer OTHER, BC ==
[~2020-07-14] VITALS: Ht 160 cm; Wt 75.5 kg
--- NOTE | ~2020-07-14 | PLAN ---
[facility] [place] [address] REHAB UNIT PLAN OF CARE Name: KISHA STRICKLAND Room #: 505-P ADM IN M.R.#: [id number] Admission: 07/14/20 Attend Phys: Eder Miller MD Discharge: Date of : 43 Report #: [id number] THIS REPORT FOR: //name// CC: Eder Hills DATE OF SERVICE: 07/17/2020 PROGRESS NOTE/OVERALL PLAN OF CARE SUBJECTIVE: The patient was seen back today in followup. She is alert, afebrile. Vital signs are stable. Cooperative. Lower extremity examination, no change noted from prior exam as far as volitional muscle testing. No calf swelling. Transfers are mod assist. Gait is contact guard 35 feet, 4-wheeled walker. In occupational therapy, lower body dressing is mod assist. Lmxq-[id number] comprehensive deficits. ASSESSMENT: 1. Medical complexity with generalized debilitation. 2. Pulmonary rehabilitation with acute respiratory failure. 3. Pneumonia. 4. Asthma. 5. Diabetes mellitus type 2. 6. Hypertension. 7. Hypothyroidism. 8. Degenerative arthritis. PLAN: The overall plan of care is based on the preadmission screen, post-admission physician evaluation and information garnered from therapy assessments. 1. Estimated length of stay is probably at least 7-10 days. 2. Medical prognosis is reasonably good. 3. Anticipated interventions includes the interdisciplinary acute inpatient rehabilitation program. 4. Anticipated functional outcomes would be for the patient to improve as far as functional mobility and ADLs and ambulation, so that she can hopefully return back to her prior living situation. 5. Discharge destination would include going back home with her , one step. Premorbid single point cane ambulator. 6. Expected therapy by discipline includes PT, OT and speech. She has been seen by speech for communication and cognition issues. Noted to have [id number] cognitive deficits with severe memory deficits. 7. Expected therapy by discipline includes PT, OT and speech 1 hour per day [address] [address] REHAB UNIT PLAN OF CARE Name: KISHA STRICKLAND Room #: 505-P [facility] IN ..#: [id number] Admission: 07/14/20 Attend Phys: Eder Miller MD Discharge: Date of : 44 Report #: [id number] each 5 days a week throughout the duration of the acute inpatient rehabilitation program. By: [id number] Eder Miller MD /[facility]
--- NOTE | ~2020-07-14 | HC ---
[facility] [place] [address] CONSULTATION Name: KISHA STRICKLAND Room #: 505-P [facility] IN M.R.#: [id number] Admission: 07/14/20 Attend Phys: Eder Miller MD Discharge: 07/30/20 Date of : 43 Report #: [id number] THIS REPORT FOR: cc: Eder Hills MD, David A. MD McKittrick, Richard James MD ~ CC: Jl Mckeon MD [facility] Efrem Cheatham MD REFERRING CLINICIAN: ____ REASON FOR CONSULTATION: Thrombocytopenia. HISTORY OF PRESENT ILLNESS: The patient is a very pleasant 74-year-old female who was originally admitted back on 07/06/2020. At that time, her platelet count was 247,000. Note that on 07/15/2020, it was 278,000; on 07/20/2020, 162,000; on 07/24/2020, 100,000; 07/28/2020, 88,000; today on 07/29/2020, 83,000. During the same time, her white count has been mostly the same though it has been slightly lower the last couple of days. Before admission, it usually ran in the 4-6 range; on admission here was 6100. Differential has been normal. Her MCV has been a little bit high since she was admitted though I do note that her B12, folate and liver functions are normal. Hopefully, this is just related to stress on her body, though there is a small possibility could be related to liver disease or an evolving myelodysplasia. Reviewed her medications and anything that she was high risk on, she is off of and her current medications were mostly begun or at low risk after the platelets began to drop. It is also vaguely possible that this should be related to a PPI, which can cause blood dyscrasias, but she reports being on them for a year or two. On the other hand, it might be reasonable to consider switching to Pepcid. The patient denies any bleeding, any family history of blood difficulties. REVIEW OF SYSTEMS: The patient denies fevers or chills. Does have some chronic leg swelling, she says no worse than usual. No new blood in the urine or stool. PAST MEDICAL HISTORY: Notable for DVT and I think she said about 2003 then again in 2011, on chronic anticoagulation since that time, like she is on Coumadin for great deal of time and switched to Eliquis within the past year. Also history of diabetes type 2, hypertension, lung disease followed by Dr. Mark Cheatham; also, hysterectomy, knee replacement, and laminectomy. ALLERGIES: Reportedly to PENICILLIN, SULFA, LATEX, TRAMADOL AND CEFUROXIME. [address] [address] CONSULTATION Name: KISHA STRICKLAND Room #: 505-P DIS IN M.R.#: [id number] Admission: 07/14/20 Attend Phys: Eder Miller MD Discharge: 07/30/20 Date of : 43 Report #: [id number] CURRENT MEDICATIONS: Include metronidazole 500 t.i.d. began on the , metoprolol 25 daily, amlodipine 2.5 daily, MiraLax 17 g daily, loperamide 2 mg q. 6 hours p.r.n., phenylephrine and mineral oil 2 g rectally q.4 hours p.r.n., furosemide 40 b.i.d., vitamin D 1000 units daily, potassium chloride 20 mEq b.i.d., apixaban 5 b.i.d., loratadine 10 daily, B12 of 500 mcg daily, levothyroxine 112 mcg daily, montelukast 10 mg daily, budesonide 0.5 mg respiratory therapy b.i.d., Tylenol p.r.n., pantoprazole had been received, but will probably be stopped. PHYSICAL EXAMINATION: GENERAL: The patient appears her stated age. She is eating breakfast, is considered reliable historian. MOOD: She is alert and pleasant. VITAL SIGNS: Recent height is 5 feet 3 inches, which is 160 cm. Recent weight is 166.5 pounds or 75.5 kilograms. Blood pressure is 120/73, O2 sat 92%, respirations 16, pulse 93, temperature 97.7. HEENT: Nose and pharynx without any blood or unusual or any petechiae. LUNGS: Mostly clear. There is some soft rhonchi centrally that clear with slight clearing of her throat. HEART: Appears regular rate. LYMPHATICS: No enlarged lymph nodes in the supraclavicular, cervical, axillary or inguinal region. Legs have some slight edema, right slightly worse than left. She says this is normal lately for her. ABDOMEN: No masses. EXTREMITIES: Without clubbing or cyanosis. Note that there is some edema with right slightly worse than left, but she says it is no worse than usual. RADIOLOGIC STUDIES: Note the patient had a CAT scan of the last year without any upper abdominal abnormalities. Had an ultrasound in 2017 without any hepatosplenomegaly. ASSESSMENT AND PLAN: 1. Thrombocytopenia, unclear etiology with normal B12, folate. No evidence of clot or bleeding, do agree with changing acid corine, could consider Pepcid for a while, though it is not real likely. This also could be involving in bone marrow disorder, though not likely with increase in MCV. We will need to watch this closely. Doubt it is hemolyzing as total bilirubin has been normal during admission. Follow serially. 2. History of deep venous thrombosis and pulmonary embolism. Continue apixaban, might consider decreasing or stopping, if platelets become the 20-30 range. 3. Mild anemia, probably anemia of chronic illness. 4. Respiratory difficulties. Continues inhalation therapies. 5. Hypertension, meds per others. 6. Hypothyroid, meds per others. [facility] [address] [address] CONSULTATION Name: KISHA STRICKLAND Room #: 505-P DIS IN M.R.#: [id number] Admission: 07/14/20 Attend Phys: Eder Miller MD Discharge: 07/30/20 Date of : 43 Report #: [id number] 7. Weakness. Continue with rehab efforts per others, will be available if questions arise. By: [id number] Adam Pond MD /nt
--- NOTE | ~2020-07-14 | H ---
[facility] [place] [address] HISTORY AND PHYSICAL Name: KISHA STRICKLAND Room #: 505-P ADM IN M.R.#: [id number] Admission: 07/14/20 Attend Phys: Eder Miller MD Discharge: Date of : 43 Report #: [id number] THIS REPORT FOR: cc: Eder Hills MD,Eder Miller,Eder Sagastume MD ~ CC: Eder Hills DATE OF SERVICE: 07/14/2020 HISTORY AND PHYSICAL AND POST-ADMISSION PHYSICIAN EVALUATION HISTORY OF PRESENT ILLNESS: The patient is a 74-year-old -[place] female, who was originally admitted to [facility] on 07/06/2020 with worsening shortness of breath and chest x-ray findings of ground-glass opacities. She was noted to have respiratory failure, placed on IV Lasix, IV steroids, IV antibiotics b.i.d., Lovenox prophylaxis, and nasal cannula O2. Gradually has improved as far as her hospital course, but is quite weak and debilitated. She has had a significant drop from her premorbid functional level. She has had solutions consultant physicians involved with Infectious Disease and Pulmonary Medicine as well as Hospitalist Service. She has now been admitted for acute in-hospital inpatient rehabilitation. She was noted to be COVID negative x 2. PAST MEDICAL HISTORY: Includes diabetes mellitus, hypertension, and lung disease. PAST SURGICAL HISTORY: Includes hysterectomy, total knee replacement, and laminectomy. MEDICATIONS: Please see the full medication listing. ALLERGIES: PENICILLIN, SULFA, LATEX, TRAMADOL AND CEFUROXIME. SOCIAL HISTORY: Lives at home with her , one step, premorbid single point cane ambulator, was independent with ADLs, shares IADLs. REVIEW OF SYSTEMS: No current complaints of chest pain, shortness of breath or abdominal discomfort. HABITS: No history of drug or alcohol abuse. Nonsmoker. PHYSICAL EXAMINATION: GENERAL: She is a pleasant 74-year-old -[place] female in no obvious distress. [address] [address] HISTORY AND PHYSICAL Name: KISHA STRICKLAND Room #: 505-P [facility] IN M.R.#: [id number] Admission: 07/14/20 Attend Phys: Eder Miller MD Discharge: Date of : 43 Report #: [id number] VITAL SIGNS: Last recorded temperature 97.9, pulse 66, respirations 20, and blood pressure 113/78. NEUROLOGIC: The patient is alert. She is oriented. She is not currently on nasal prong O2. HEENT: Facies are symmetric. CHEST: Decreased breath sounds throughout. CARDIOVASCULAR: Sounded regular rate and rhythm. ABDOMEN: Bowel sounds positive, nontender. GENITOURINARY AND RECTAL: Deferred. She follows basic commands, is pleasant, conversant, appropriate. Cranial nerves appear to be intact. EXTREMITIES: Functional range of motion of both upper extremities and lower extremities strength is probably a grade 3+ to 4-/5. DTRs are trace to 1. No focal calf swelling. The patient functionally has been transferring with min assist and short distance front-wheeled walker ambulation. ASSESSMENT: A 74-year-old -E[place]ian female with the following problem list: 1. Medical complexity with generalized debilitation. 2. Pulmonary rehabilitation with acute respiratory failure. 3. Pneumonia. 4. Asthma. 5. Diabetes mellitus type 2. 6. Hypertension. 7. Hypothyroidism. 8. Degenerative arthritis. PLAN: The patient has been admitted for acute in-hospital inpatient rehabilitation. From a post-admission physician evaluation perspective, there are no relevant changes since the preadmission screening. Please see the above review of prior and current medical and functional conditions and comorbidities. Please see the patient's previous and current functional status. As far as risk of complications, the patient has multiple medical comorbidities as noted above. Initial plan of care involves the interdisciplinary acute inpatient rehabilitation program. Measurable functional goals would be for the patient to become modified independent with transfers, mobility, ADLs, so she can return back to the home setting. She needs to improve her endurance. Prognosis is reasonably good. Estimated length of stay is probably at least 7-10 days. Potential barriers would include her multiple above noted comorbidities and decreased functional status. The patient meets diagnostic criteria for an acute in-hospital inpatient rehabilitation stay. She meets the medical necessity criteria[place] [address] HISTORY AND PHYSICAL Name: KISHA STRICKLAND Room #: 505-P ADM IN M.R.#: [id number] Admission: 07/14/20 Attend Phys: Eder Miller MD Discharge: Date of : 43 Report #: [id number] the solutions consultant physicians continue to follow. She does have the tolerance for therapies and has appropriate discharge goals back to the home setting. By: [id number] Eder Miller MD /nt
[2020-07-14] MEDS ORDERED: AZITHROMYCIN500 M1 IV (13:38)
[2020-07-14] MEDS ORDERED: PREDNISONE 20 M20 M1 PO (13:38)
[2020-07-14] MEDS ORDERED: AZACTAM 1 GM VIA1 G1 IV (13:38)
[2020-07-14] MEDS ORDERED: ENOXAPARIN30 MG/0.1 SUBQ (13:38)
[2020-07-14 19:00] VITALS: BP 113/78
--- NOTE | 2020-07-15 01:20 | NUR ---
PT ADMITTED TO 5N THIS EVENING. PT ADMITTING DIAGNOSIS ACUTE RESPIRATORY FAILURE, PNA. ALSO, GENERAL DEBILITY. VSS. MEDS GIVEN ORDERED AND WELL TOLERATED. ADMIT COMPLETED. TYLENOL GIVEN FOR SOME DISCOMFORT. SAT WNL ON RA. SLEEPING WELL. WILL CONTINUE TO MONITOR FREQUENTLY.
[2020-07-15 06:29] LABS: HEMOGLOBIN 10.7 gm/dL (12.0-15.0); MCH 34.4 pg (26.0-34.0); MCHC 33.6 g/dL (28.0-37.0); MCV 102.4 fL (80.0-100.0); RBC 3.12 mil/uL (4.20-5.00); RDW 15.1 % (10.5-14.5); WBC 6.7 thou/uL (4.0-11.0)
[2020-07-15 06:41] LABS: CALCIUM 9.6 mg/dL (8.5-10.1); CREATININE 0.6 mg/dL (0.6-1.0); POTASSIUM 3.4 mmol/L (3.5-5.1)
[2020-07-15 08:30] VITALS: BP 103/68
--- NOTE | 2020-07-15 16:20 | NUR ---
chart review, cm was able to visit with pt via phone call. she able to make her needs know in soft voice, preferrs going by rere. " live home with spouse, did not work in garden this years, did. 1 step enter 12 to basement. have cane and walker. have home breathing tx. no home oxygen. been to skilled rehab in past and past hh with [facility]. dr is jose f oliva. manage own medication and still drive vehicle. independent when feeling ok"/rere. education on team meeting and dcp. will cont following as needed for dc needs. support from family.
--- NOTE | 2020-07-15 20:18 | NUR ---
ASSUMED CARE OF PT AT 0700. PT IS A&OX4 AND VITAL SIGNS ARE STABLE. PT DENIES PAIN AND PARTICIPATED IN THERAPIES. ORDERS TO HOLD LOVENOX THIS MORNING. ACCU CHECKS CHANGED TO BID. IV TO RIGHT WRIST FOR IV ABX, FLUSHES APPROPRIATELY, NO DRAINAGE, REDNESS OR EDEMA. FALL PRECAUTIONS IN PLACE AND NURSING WILL CONTINUE TO MONITOR.
[2020-07-15 20:49] VITALS: BP 117/70
--- NOTE | 2020-07-16 02:15 | NUR ---
TOLERATING PO MEDS WITH WATER, UP TO TOILET WITH GAIT BELT AND WALKER. RIGHT FOREARM SALINE LOCK PATENT FOR IV ANTIBIOTICS. PLEASANT
[2020-07-16 08:14] VITALS: BP 112/71
--- NOTE | 2020-07-16 10:34 | NUR ---
Assumed care at 0700. Patient is alert and orientated x 4. She complained of right lower ribs cage pain and rate pain at 4/10. She received tylenol 650mg and pain reassessed and obtained partial relief at 3/10. She is up with assist x once with walker and gait belt. Lungs are clear and diminished in her lower bases. Denies any short of air or chest pain. Heart sound is normal with regular heart rhythm. Bowel sounds are active in all quadrants and last BM was on 07/15, denies any nausea or vomiting. Appetite is fair and she ate 50% of her breakfast today. She reports her appetite is slowing returning and hoping to have another BM today. Blood sugar was 72 and received her Metfromin. She was given her stool regimen this morning. She is continence of bowel and bladder. She is currently being treated with IV Zithromycin for pneumonia. She is afebrile and her vital sifns are within normal limits. Her IV was leaking and was discontinued and will plan to replace today. Goal is to increase activity and she is slowly progressing towards discharge goal. Will continue to monitor progress.
--- NOTE | 2020-07-16 14:39 | NUR ---
1400 IV SALINE LOCK PLACED ON 07/16/20 IN HER RIGHT AC, WITH 22 GAUGE JELCO. IV SITE WITHOUT REDNESS OR SWELLING TRANSPARENT DRESSING IN PLACE. IV ANTIBIOTICS STARTED. PT TOLERATED PROCEDURE WELL. WILL CONTINUE TO MONITOR.
[2020-07-16 19:15] VITALS: BP 122/74
--- NOTE | 2020-07-17 03:33 | NUR ---
assumed care approx 1900 evening 07/16. pt lying in bed with head of bed elevated at change of shift. pt alert and oriented x4 however stated she was very tired and worn out from therapy. pt up to void in toilet before falling asleep. pt appears to be sleeping soundly with hourly rounding checks. bed alarm on and call light in reach. will continue to monitor.
[2020-07-17 07:05] VITALS: BP 130/75
--- NOTE | 2020-07-17 07:30 | NUR ---
ASSUMED CARE AT 0700. PT SLEPT WELL AND REPORTED STILL FEELING TIRED AND COMPLAINED OF HAVING MODERATE HEART BURN. DENIES ANY NAUSEA OR VOMITING. APPETITE LAST NIGHT WAS FAIR AND ATE LESS THAN 50%. SHE REPORTED USUALLY TAKES PROTONIX AND HELPS TO ALLEVIATE SYMPTOMS. SHE IS ALERT AND ORIENTATED. DENIES ANY PAIN. VOIDED WELL AND NO BM SINCE 07/15/20. LUNGS SOUNDS RHONCHI AND SAT AT 88% ON ROOM AIR. DENIES ANY SHORT OF AIR BUT GETS SLIGHLTY TIRED WITH EXERTION. WILL EDUCATE PT ON USING THE INCENTIVE SPIROMETER AFTER OT IS DONE. OT REPORTED PT SEEMS MORE TIRED TODAY THAN HER FIRST DAY. CURRENTLY SHE IS AFEBRILE, BP 130/75 AND HR 80BPM. SLOW PROGRESSION TOWARDS DISCHARGE GOAL. WILL CONT TO MONITOR.
[2020-07-17 19:05] VITALS: BP 110/73
--- NOTE | 2020-07-17 23:20 | NUR ---
PT ASSESSMENT COMPLETED AND VSS. MEDS GIVEN ORDERED AND WELL TOLERATED. FALL PRECAUTIONS IN PLACE. UP TO THE BATHROOM WITH ASST/GAIT/WALKER. STEADY. PT WAS ABLE TO MANAGE HER OWN UNDERWEAR. PARTIAL PLATE RINSED AND SOAKING OVERNIGHT. PRN TYLENOL HELFPUL FOR GENERALIZED DISCOMFORT. SLEEPING WELL. WILL CONTINUE TO MONITOR FREQUENTLY.
[2020-07-18 07:45] VITALS: BP 114/71
--- NOTE | 2020-07-18 13:30 | NUR ---
ASSUMED CARE OF PT AT 0700. PT IS A&OX4, FORGETFUL, VITAL SIGNS ARE STABLE. PT DENIES PAIN AND PARTICIPATED IN SCHEDULED THERAPIES. PT REPORTS SIGNIFICANT FATIGUE WITH ACTIVITIES. BLOOD GLUCOSE DECREASED THIS AM AND METFORMIN WAS HELD, PROVIDER NOTIFIED. IV ACCESS TO RIGHT AC. FALL PRECAUTIONS IN PLACE AND NURSING WILL CONTINUE TO MONITOR.
[2020-07-18 19:20] VITALS: BP 104/72
--- NOTE | 2020-07-19 00:52 | NUR ---
ASSUMED PT CARE AT 1900.PT WAS OBSERVED SITTING UP IN THE CHAIR IN HER ROOM WATCHING TV AT SHIFT CHANGE.PT DENIED PAIN BUT C/O FATIGUE AND REQUESTED TO GET BACK IN BED EARLY.FAMILY BROUGHT SOME FOOD FOR PT.SHE ATE AND RETIRED TO BED FOR THE NIGHT.PT UP WITH GAIT BELT/WALKER TO THE BR,GOOD ENDURANCE NOTED.PT IN BED AT THIS TIME SLEEPING.HOURLY ROUNDING MAINTAINED.FALL PRECAUTIONS IN PLACE,CALL LIGHT WITHIN REACH.
[2020-07-19 07:00] VITALS: BP 133/78
--- NOTE | 2020-07-19 15:59 | NUR ---
ASSUMED CARE OF PT AT 0700. PT IS A&OX4 AND VITAL SIGNS ARE STABLE. PT DENIES PAIN AND PARTICIPATED IN THERAPIES. PT REPORTS INCREASED FATIGUE TODAY AND BECOMES EXHAUSTED DURING SIMPLE ADL TASKS. ACCU CHECKS BID WITH MEALS. IV ACCESS TO RIGHT AC. +2 PITTING EDEMA TO BILATERAL LOWER EXTREMITIES. PT ENCOURAGED TO TAKE FREQUENT BREAKS AND GROUP ACTIVITIES. FALL PRECAUTIONS IN PLACE AND NURSING WILL CONTINUE TO MONITOR.
[2020-07-19 20:23] VITALS: BP 110/72
--- NOTE | 2020-07-19 22:28 | NUR ---
PT ASSESSMENT COMPLETED AND VSS. MEDS GIVEN ORDERED AND WELL TOLERATED. TYLENOL HELPFUL FOR GENERALZIED DISCOMFORT. ASST WITH REPOSITION FOR COMFORT. PT DENIES NEEDS. VERY TIRED. SAT WNL ON RA. PT SLEEPING WELL. WILL CONTINUE TO MONITOR FREQUENTLY.
[2020-07-20 06:38] LABS: ABSOLUTE NEUTROPHILS 3.1 thou/uL (1.4-8.2); BASOPHILS 0.8 % (0.0-2.0); EOSINOPHILS 2.2 % (0.0-3.0); HEMOGLOBIN 10.4 gm/dL (12.0-15.0); LYMPHOCYTES 19.2 % (24.0-44.0); MCH 34.8 pg (26.0-34.0); MCHC 33.6 g/dL (28.0-37.0); MCV 103.5 fL (80.0-100.0); POLYS 71.8 % (36.0-66.0); RDW 16.5 % (10.5-14.5); WBC 4.3 thou/uL (4.0-11.0)
[2020-07-20 07:08] LABS: CALCIUM 8.9 mg/dL (8.5-10.1); CREATININE 0.6 mg/dL (0.6-1.0); MAGNESIUM 1.5 mg/dL (1.8-2.4); POTASSIUM 3.8 mmol/L (3.5-5.1)
[2020-07-20 08:10] VITALS: BP 109/75
[2020-07-20 08:51] LABS: ANISOCYTOSIS 1+; MACROCYTES 1+
[2020-07-20 08:52] LABS: LARGE PLATELETS OCCASIONAL
[2020-07-20 08:53] LABS: PLATELET COUNT 162 thou/uL (150-400)
--- NOTE | 2020-07-20 11:04 | NUR ---
ASSUMED CARE AT 0700. PT WAS WITH OT GOING TO GET HER SHOWER THIS MORNING. PT IS SITTING AT THE SIDE OF THE BED AND APPEARS TO BE CALM AND COMFORTABLE. DENIES ANY PAIN, DOES REPORT SHORT OF AIR WITH EXERTION, OTHERWISE FEELING WELL. APPETITE IS SLOWLY IMPROVING. NO REPORTED HEART BURN BUT DOES REPORT, "FEELING SLIGHLY GASSY, FROM HER DINNER YESTERDAY". SHE HAD A GOOD BM ON 07/19. LUNGS ARE CLEAR AND WITH SOME CRACKLES IN LOWER BASES. INCENTIVES SPIROMETRY ENCOURAGED AND ABLE TO DO UP TO 500ML. PROGRESSING SLOWLY WITH THERAPY AND WILL ENCOURAGE TO INCREASE ACTIVITY AND CONT TO MONITOR PROGRESS.
[2020-07-20 19:31] VITALS: BP 115/79
--- NOTE | 2020-07-21 00:58 | NUR ---
PT ASSESSMENT COMPLETED AND VSS. MEDS GIVEN ORDERED AND WELL TOLERATED. FALL PRECAUTIONS IN PLACE. ASST WITH REPOSITION FOR COMFORT. PRN TYLENOL HELPFUL FOR GENERALIZED DISCOMFORT. SLEEPING WELL. DENIES NEEDS. WILL CONTINUE TO MONITOR FREQUENTLY.
[2020-07-21 07:45] VITALS: BP 110/77
--- NOTE | 2020-07-21 12:52 | NUR ---
ASSUMED CARE AT 0700. PT IS GETTING READY TO GET UP WITH OT TO THE BATHROOM. SITTING AT THE SIDE OF THE BED. DENIES ANY PAIN OR LIGHTHEADEDNESS. REPORTED NOT ABLE TO SLEEP WELL LAST NIGHT. ALSO COMPLAINED OF SOME HEART BURN AND WAS GIVEN PROTONIX THIS MORNING. BP 110/77, HER ANTI HTN MEDS HELD TODAY. BG 62 WITH NO COMPLAINS OF HYPOGLYCEMIA. APPLE JUICE GIVEN IMMEDIATELY AND BREAKFAST TRAY WAS GIVEN WELL. HER METFORMIN WAS HELD. PROGRESSING SLOWLY WITH THERAPY. WILL CONT TO MONITOR.
--- NOTE | 2020-07-21 13:38 | NUR ---
team meeting, recommendation: will need assist with pills and bills. lower ext swelling. dc 07/28/2020 [facility] ( pt, ot, st, and nursing). no driving
--- NOTE | 2020-07-21 15:44 | NUR ---
MID SHIFT CHANGE OF CARE: ASSUMED CARE AROUNBD 1450, PT IS A&0X4, UP W/GAIT, WALKER, SBA, FEELING VERY WEAK. USES CALL LIGHT FOR NEEDS. WILL CONTINUE TO MONITOR. ENCOURAGED HER TO USE CALL LIGHT FOR ANY NEEDS
--- NOTE | 2020-07-21 16:35 | NUR ---
FAXED REFERRAL TO [facility] RECEIVED CONFIRMATION AND LEFT MSG WITH INTAKE WILL F/U WITH HH IN THE AM.
[2020-07-21 19:15] VITALS: BP 135/57; BP 98/69
--- NOTE | 2020-07-21 23:35 | NUR ---
ASSUMED CARE OF PT AT 1915. PT IS A&OX4. IS ON ROOM AIR. DENIES PAIN. IS STABLE. IS UP WITH 1 ASSIST, GB WALKER. FALL PRECAUTIONS & HOURLY ROUNDING CONTINUED THIS SHIFT. LABS & VITALS REVIEWED. PT IS CURRENTLY SLEEPING AT THIS TIME. IS ABLE TO MOVE SELF IN BED. CALL LIGHT WITHIN REACH. WILL CONTINUE TO MONITOR.
[2020-07-22 08:00] VITALS: BP 111/70
[2020-07-22 11:12] VITALS: BP 111/70
--- NOTE | 2020-07-22 15:15 | NUR ---
PATIENT WAS IN ROOM GETTING READY TO WORK WITH OT WHEN CARE ASSUMED. PATIENT IS ALERT/ORINETED X 3-4 ABLE TO VOICE NEED. PATIENT TOOK ALL MEDICATION WHOLE WITHOUT DIFFICULTY. PATIENT IS EATING MEALS AND DRINKING FLUID WELL. MORNING BLOOD SUGAR WITH RESULT OF 66, MORNING METFORNIN HELD. BLOOD PRESSURE MEDICATION ALSO HELD, NURSE PRACTITIONER (SRIDHAR) NOTIFIED. PATIENT IS CONTINENT OF B&B, LCTA RESP EVEN/UNLABORED, NO SOA/CYANOSIS NOTED. BS+X4 ABD SOFT, NON-TENDER TO TOUCH. PO FLUID INTAKE ENCOURAGED. NO SIGN OF ACUTE DISTRESS NOTED, CALL LIGHT IN REACH, WILL CONTINUE TO MONITOR.
[2020-07-22 20:11] VITALS: BP 124/76
--- NOTE | 2020-07-23 02:29 | NUR ---
assumed care approx 1900 evening 07/22. pt sitting on toilet at change of shift. pt alert and oriented x4, appropriate and cooperative. pt assisted into bed, removed teds per her request. pt took hs meds with water tolerating well. pt appears to be sleeping soundly with hourly rounding checks. bed alarm on and call light in reach. will continue to monitor.
[2020-07-23 08:00] VITALS: BP 124/76
--- NOTE | 2020-07-23 12:21 | NUR ---
Assumed care of pt at 0700. Pt a&ox4. Denies pain. Pt is supposed to call nurses station at 1700 and ask for scheduled meds. Will document whether patient remembers to call or not. Call light within reach. Fall precautions in place. Will continue to monitor.
--- NOTE | 2020-07-23 13:46 | NUR ---
Nutrition followup: pt has been eating well, 75-100% of meals on regular diet. No longer on carb controlled due to persistent hypoglycemia. Metformin D/C'ed. Lower extremity edema, on lasix. Current weight up 7# from admit. May be combination of fluid vs improved appetite/intake. Will discontinue ensure clear supplements per pt request. No longer drinking due to good intake at meals. Decreased followups to once/week.
[2020-07-23 20:30] VITALS: BP 118/81
--- NOTE | 2020-07-24 05:15 | NUR ---
assumed care at approx 1900 evening 07/23. pt alert and oriented x4, pleasant and cooperative. pt with large loose bm before hs. pt took hs meds with water tolerating well. pt up once tonight to void and now back to bed asleep. bed alarm on and call light in reach. will continue to monitor.
[2020-07-24 05:20] LABS: ABSOLUTE NEUTROPHILS 2.4 thou/uL (1.4-8.2); EOSINOPHILS 1.5 % (0.0-3.0); HEMATOCRIT 31.2 % (37.0-47.0); HEMOGLOBIN 10.4 gm/dL (12.0-15.0); LYMPHOCYTES 30.2 % (24.0-44.0); MCH 34.6 pg (26.0-34.0); MCHC 33.2 g/dL (28.0-37.0); MCV 104.1 fL (80.0-100.0); MONOCYTES 5.6 % (1.0-8.0); PLATELET COUNT 100 thou/uL (150-400); POLYS 61.7 % (36.0-66.0); RDW 16.5 % (10.5-14.5); WBC 3.9 thou/uL (4.0-11.0)
[2020-07-24 05:34] LABS: CALCIUM 8.4 mg/dL (8.5-10.1); CREATININE 0.5 mg/dL (0.6-1.0); MAGNESIUM 1.6 mg/dL (1.8-2.4); POTASSIUM 3.8 mmol/L (3.5-5.1)
[2020-07-24 08:04] VITALS: BP 95/63
--- NOTE | 2020-07-24 14:11 | NUR ---
I have reviewed the documentation by GLORIA SEN from 07/24/20 to 07/24/20 and I concur with it. LOLIS DA SILVA, PT, DPT
--- NOTE | 2020-07-24 19:18 | NUR ---
ASSUMED CARE OF PT AT 0700. PT IS A&OX4 AND VITAL SIGNS ARE STABLE. PT DENIES PAIN AND PARTICIPATED IN SCHEDULED THERAPIES. +3 PITTING EDEMA TO BILATERAL FEET. ACCU CHECKS BID WITH MEALS PER. PT REPORTS MULTIPLE FREQUENT LOOSE STOOLS, MANAGED WITH PO MEDICATIONS. FALL PRECAUTIONS IN PLACE AND NURSING WILL CONTINUE TO MONITOR.
[2020-07-24 19:50] VITALS: BP 115/56
--- NOTE | 2020-07-24 23:23 | NUR ---
VSS-AFEBRILE. PLACED ON 2LNC DUE TO SAO2 OF 72% ON SPOT CHECK WITH SHIFT ASSESSMENT. LUNGS CLEAR IN ALL MARX BILATERALLY. YONY AREA EXCORIATED DUE TO MULTIPLE BOUTS OF DIARRHEA. ADMINISTERED ANTI DIARRHEAL MEDICATION AND APPLIED CREAM TO AREA FOR COMFORT. REMOVED REJI HOSE PER PATIENT REQUEST, AND ELEVATED BOTH LEGS TO EASE ANKLE AND PEDAL SWELLING. CALLS APPROPRIATELY FOR ANY NEEDED ASSISTANCE.
--- NOTE | 2020-07-25 06:23 | NUR ---
PT ALERT AND ORIENTED X 4. AMB TO BR WITH WALKER AND ASSIST X 1 WITHOUT DIFFICULTY. INCONT OF URINE AND SMEAR STOOL THIS MORNING. PT STATES SHE SLEPT WELL TONIGHT. BED ALARM ON FOR SAFETY. PT APPEARS TO BE SLEEPING ON HOURLY ROUNDS.
[2020-07-25 08:00] VITALS: BP 95/61
--- NOTE | 2020-07-25 16:52 | HC ---
[facility] [place] [address] CONSULTATION Name: KISHA STRICKLAND Room #: 505-P ADM IN M.R.#: [id number] Admission: 07/14/20 Attend Phys: Eder Miller MD Discharge: Date of : 43 Report #: [id number] THIS REPORT FOR: cc: Eder Hills MD, David A. MD Deutch,Randolph Garcia PhD ~ CC: Eder Hills DATE OF SERVICE: 07/18/2020 BEHAVIORAL STATUS EXAM ATTENDING PHYSICIAN: Eder Miller MD HEAD OF ENGLISH: Randolph Chong CLINICAL PRESENTATION: The patient is a 74-year-old -[place] female originally admitted to [facility] with worsening shortness of breath and positive chest x-ray findings. She was noted to have respiratory failure. Her condition gradually improved, but she remained weak and debilitated requiring further rehabilitation. Her assessment on admission to the rehabilitation unit included medical complexity with generalized debilitation, pulmonary rehabilitation with acute respiratory failure, pneumonia, asthma, diabetes mellitus type 2, hypertension, hypothyroidism and degenerative arthritis. A complete description of her medical condition and history can be found in her medical record. Neuropsychological consultation was requested to provide assistance in the assessment of cognitive and emotional status and to provide recommendations and services. Prior to this most recent admission, she reports living independently with her in their home. She stated that she was driving plus independent with instrumental activities of daily living. She has 3 children. The patient is a high school graduate. 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 She does not report prior treatment for depression or anxiety. TECHNIQUES UTILIZED: Clinical interview, review of medical records, staff consultation and behavioral observation, mini mental status exam, 2 standard version, clock drawing and brief verbal fluency assessment, letter and single category. EXAMINATION FINDINGS: The patient was alert and cooperative during the assessment. She describes herself as extremely fatigued and tired. [facility] [address] [place] [address] CONSULTATION Name: KISHA STRICKLAND Room #: 505-P [facility] [place] ..#: [id number] Admission: 07/14/20 Attend Phys: Eder Miller MD Discharge: Date of : 43 Report #: [id number] response was noted during the interview and assessment. The patient reports difficulty with sleep, appetite and word finding. While she does not report problems with memory or feelings of depression or anxiety. However, her mood appeared anxious during the interview. Performance on the MMSE 2 brief version was within normal limits with a raw score of 14/16. She was 3/3 for initial registration, 5/5 for orientation to time and place. She was 1/3 for immediate recall of 3 items after a brief time delay and distraction. Performance on the MMSE 2 standard version was of 23/30, which is a T score of 35 and percentile rank of 7. She was 2/5 for serial sevens, 2/2 for naming, 1/1 for repetition, 3/3 for comprehension. She could read and follow single command and write a sentence. The patient was unable to accurately copy a simple geometric design. Deficits were noted with clock drawing with difficulty in placing numbers within a clock, able to set the hands at a designated time and perseration during the task. Letter fluency was extremely low with a raw score of 3 and a percentile rank of less than 1. Category fluency improved with a raw score of 10 and a T score 36, which is at the 8th percentile. The patient is presenting with deficits in concentration, visual spatial construction and organization, and executive functioning. Deficits in thought organization are likely to have an impact in executive functioning. She is likely to require increased assistance. DIAGNOSTIC IMPRESSION: Neurocognitive disorder -- extent to be determined, likely in the moderate range. RECOMMENDATIONS: The patient will benefit from a further workup for her neurocognitive disorder following her discharge. Deficits in executive functioning, planning and problem solving along with very poor endurance and rapid fatigue will likely interfere with instrumental activities of daily living including driving. A followup neuropsych assessment plus neurology consultation is recommended. Thank you very much for allowing me to provide the consultation on this patient. <ELECTRONICALLY SIGNED> By: Randolph Chong, PhD 07/25/20 1652 [id number] Randolph Chong, PhD /nt
--- NOTE | 2020-07-25 19:55 | NUR ---
ASSUMED CARE OF PT AT 0700. PT IS A&OX4 AND VITAL SIGNS ARE STABLE. PT DENIES PAIN AND PARTICIPATED IN THERAPIES. ACCU CHECKS BID. REPORTS MULTIPLE LOOSE STOOLS IN AM, MANAGED WITH PO MEDICATIONS. +3 PITTING EDEMA TO BLE. FALL PRECAUTIONS IN PLACE AND NURSING WILL CONTINUE TO MONITOR.
[2020-07-25 20:00] VITALS: BP 91/53
--- NOTE | 2020-07-26 01:55 | NUR ---
ASSUMED CARE OF PT AT 1900HRS. PT AO4 AND SOMETIMES FORGETFUL. FALL PRECAUTION IN PLACE. PT PLACED ON 2L O2 VIA NC DUE TO PT DESATING. PT HAS A SOFT BP BUT OTHER VSS. PT DENIED PAIN OR NAUSEA. ASSESSMET CHARTED. PT LEG ELEVATED DUE TO BLE EDEMA. PT WAS ABLE TO GET COMFORTABLE AND SLEEP PART OF THE SHIFT. WILL CONTINUE TO MONITOR FOR CHANGES.
[2020-07-26 08:10] VITALS: BP 106/59
--- NOTE | 2020-07-26 17:58 | NUR ---
PT ALERT AND ORIENTED TIMES FOUR. VSS. PT DENIES PAIN. PT TOLERATES MEDS AND MEALS. PT UP TO CHAIR FOR MOST OF THE SHIFT. PT DAUGHTER AT BEDSIDE THIS AFTERNOON. PT SLOWLY PROGRESSING [facility] POC GOALS.
[2020-07-26 19:00] VITALS: BP 119/67
--- NOTE | 2020-07-26 22:28 | NUR ---
ASSUMED CARE OF PT AT 1915. PT IS A&OX4. IS ON 2L OF O2/NC. DENIES PAIN. IS UP WITH 1 ASSIST, GB, WALKER. FALL PRECAUTIONS & HOURLY ROUNDING CONTINUED THIS SHIFT. PT REPORTED HAVING SEVERAL BOUTS OF DIARRHEA TODAY. REFUSED TO TAKE MIRALAX. PT IS STABLE. IS CURRENTLY SLEEPING IN BED. CALL LIGHT WITHIN REACH. WILL CONTINUE TO MONITOR. LABS & VITALS REVIEWED.
[2020-07-27 07:15] VITALS: BP 115/83
--- NOTE | 2020-07-27 18:43 | NUR ---
ASSUMED CARE OF PT AT 0700. PT IS A&OX4 AND VITAL SIGNS ARE STABLE. PT DENIES PAIN AND PARTICIPATED IN SCHEDULED THERAPIES. ACCU CHECKS BID. FREQUENT LOOSE STOOLS CONTINUED THIS SHIFT, SAMPLE COLLECTED AND SENT TO LAB, NO RESULTS AT THIS TIME. ANTI-DIARRHEAL ADMINISTERED PER ORDERS AND PT REPORTS NO RELIEF. FALL PRECAUTIONS IN PLACE AND NURSING WILL CONTINUE TO MONITOR.
[2020-07-27 19:29] VITALS: BP 115/69
--- NOTE | 2020-07-28 03:07 | NUR ---
assumed care approx 1900 evening 07/27. pt lying in bed sleeping at change of shift. pt awoke for hs meds tolerating well and taking with water. pt stated she was tired. pt appears to be sleeping well. call light in reach. bed alarm on. will continue to monitor.
[2020-07-28 07:20] VITALS: BP 109/73
[2020-07-28 10:19] LABS: HEMATOCRIT 30.7 % (37.0-47.0); MCH 33.9 pg (26.0-34.0); MCHC 32.6 g/dL (28.0-37.0); RBC 2.96 mil/uL (4.20-5.00); RDW 17.1 % (10.5-14.5); WBC 3.9 thou/uL (4.0-11.0)
[2020-07-28 10:30] LABS: CALCIUM 8.2 mg/dL (8.5-10.1); CREATININE 0.6 mg/dL (0.6-1.0); POTASSIUM 3.5 mmol/L (3.5-5.1)
--- NOTE | 2020-07-28 11:23 | NUR ---
PT CARE ASSUMED AT 0700, PT ALERT AND ORIENTED X4, DENIES ANY PAIN, COMPLAINS OF ABDOMINAL CARMPS AND SOME NAUSEA. OFFERED PT SOME ICE CHIPS. PT IS ON ROOM AIR, NO SIGNS OF DISTRESS NOTED. THERE IS A POSSISIBILITY PT WILL BE GETTING D/C TODAY, WAITING ON C-DIFF RESULTS. FALL PRECAUTIONS IN PLACE, CALL LIGHT AND TABLE WITHIN REACH. WILL CONTINUE TO MONITOR.
--- NOTE | 2020-07-28 11:26 | NUR ---
cm notified by unite supervisor operations that pt is not dc today rt medical changes.
--- NOTE | 2020-07-28 18:19 | NUR ---
I have reviewed the documentation by TINA WILKERSON from 07/28/20 to 07/28/20 and I concur with it. TANVI QUEZADA
[2020-07-28 19:17] VITALS: BP 101/56
--- NOTE | 2020-07-29 01:23 | NUR ---
PT ALERT AND ORIENTED X 4. AMB TO BR WITH WALKER AND ASSIST X 1 WITHOUT DIFFICULTY. PT DENIES PAIN OR DISCOMFORT. BED ALARM ON FOR SAFETY. PT APPEARS TO BE SLEEPING ON HOURLY ROUNDS.
[2020-07-29 07:17] VITALS: BP 120/63
--- NOTE | 2020-07-29 10:41 | NUR ---
FAXED CLINICAL UPDATE TO [facility] RECEIVED CONFIRMATION SPOKE WITH INTAKE TODAY PT TO DC TOMORROW 07/30 TO HOME.
[2020-07-29] MEDS ORDERED: FELODIPINE 5 MG5 M1 PO (12:26)
[2020-07-29] MEDS ORDERED: PROBIOTIC1 EAC1 PO (12:26)
[2020-07-29] MEDS ORDERED: VITAMIN D325 MC1 PO (12:26)
[2020-07-29] MEDS ORDERED: ELIQUIS5 MG PO (12:26)
[2020-07-29] MEDS ORDERED: TOPROL XL25 MG PO (12:26)
--- NOTE | 2020-07-29 12:28 | NUR ---
ASSUMED CARES AT 0700. PT AWAKE, ALERT AND ORIENTED*4. DENIES PAIN. VITALS REMAIN STABLE. PT CONTINUES TO HAVE BLE EDEMA, REJI HOSE IN PLACE AND EXTREMITIES ELEVATED. PT UP WITH 1 MIN ASSIST, GB AND WALKER AND TOLERATED WELL. PARTICIPATED WELL IN ALL THERAPIES AND CONTINUES TO PROGRESS TOWARDS DC GOALS. Q1H VISUAL CHECKS. CALL LIGHT WITHIN REACH. FALL PRECAUTIONS IN PLACE
[2020-07-29 19:19] VITALS: BP 116/73
--- NOTE | 2020-07-29 23:47 | NUR ---
PT ALERT AND ORIENTED X 4. AMB TO BR WITH WALKER AND ASSIST X 1 WITHOUT DIFFICULTY. PT DENIES PAIN OR DISCOMFORT. BED ALARM ON FOR SAFETY. PT APPEARS TO BE SLEEPING ON HOURLY ROUNDS. PT DID NOT CALL FOR HS MEDS.
[2020-07-30 05:55] LABS: ABSOLUTE NEUTROPHILS 1.4 thou/uL (1.4-8.2); BASOPHILS 0.9 % (0.0-2.0); HEMATOCRIT 26.8 % (37.0-47.0); HEMOGLOBIN 9.1 gm/dL (12.0-15.0); LYMPHOCYTES 42.9 % (24.0-44.0); MCH 34.9 pg (26.0-34.0); MCHC 33.8 g/dL (28.0-37.0); MCV 103.5 fL (80.0-100.0); MONOCYTES 6.2 % (1.0-8.0); PLATELET COUNT 83 thou/uL (150-400); RBC 2.59 mil/uL (4.20-5.00); RDW 16.9 % (10.5-14.5)
[2020-07-30 07:26] LABS: % SATURATION 45 % (20-39); IRON 42 ug/dL (50-170); TIBC 94 ug/dL (250-450)
[2020-07-30 07:59] LABS: FOLIC ACID 17.6 ng/mL (8.6-58.9)
[2020-07-30 08:03] VITALS: BP 120/73
[2020-07-30 08:47] VITALS: BP 120/73
[2020-07-30 09:54] LABS: ABSOLUTE RETIC COUNT 0.0358 10^6/uL; OBSERVED RETIC COUNT 1.35 % (0.6-2.6)
[2020-07-30] MEDS ORDERED: IRON325 M1 PO (10:02)
[2020-07-30] MEDS ORDERED: ELIQUIS5 MG PO (10:03)
[2020-07-30 10:05] LABS: ALBUMIN 1.7 g/dL (3.4-5.0); DIRECT BILIRUBIN < 0.1 mg/dL (<0.1-0.2); SGOT 18 U/L (15-37); SGPT 24 U/L (30-65); TOTAL BILIRUBIN 0.2 mg/dL (0.2-1.0)
--- NOTE | 2020-07-30 10:36 | NUR ---
PT DISCHARGING TODAY TO HOME WITH [facility] FAXED DC ORDERS/SUMMARY SPOKE WITH INTAKE THEY RECEIVED ORDERS AND WILL NOTIFY PT TIME OF VISITS.
--- NOTE | 2020-07-30 13:41 | NUR ---
ASSUMED CARES AT 0700. PT AWAKE, ALERT AND ORIENTED*4. VITALS REMAIN STABLE. PT DENIES PAIN. CONTINUES TO HAVE BLE EDEMA, REJI HOSE IN PLACE AND EXTREMITIES ELEVATED. PT UP WITH 1 MIN ASSIST, GB AND WALKER AND TOLERATED WELL. DC INSTRUCTION AND TEACHING COMPLETED AT THE BEDSIDE, PT VERBALISED UNDERSTANDING. PT VISITED IN 4W PRIOR TO DC. DC'D TO HOME WITH DAUGHTER AND HH AND 1200.
== END 2020-07-30 12:56 | disposition home health service (06) | DRG 947 ==
PROVIDERS: Internal Medicine Hematology & Oncology; Nurse Practitioner; Nurse Practitioner Family; ADMIT Physical Medicine & Rehabilitation; ATTEND Physical Medicine & Rehabilitation
DX: R53.81 Other malaise (principal); J18.9 Pneumonia, unspecified organism; J96.01 Acute respiratory failure with hypoxia; J45.909 Unspecified asthma, uncomplicated; E11.9 Type 2 diabetes mellitus without complications; I10 Essential (primary) hypertension; E03.9 Hypothyroidism, unspecified; M19.90 Unspecified osteoarthritis, unspecified site; Z91.040 Latex allergy status; Z88.0 Allergy status to penicillin; Z88.2 Allergy status to sulfonamides; Z88.8 Allergy status to other drugs, medicaments and biological substances; Z90.710 Acquired absence of both cervix and uterus; Z96.652 Presence of left artificial knee joint; K59.00 Constipation, unspecified; E87.6 Hypokalemia; E83.42 Hypomagnesemia
CPT/HCPCS: 10112

== ENCOUNTER 2020-09-02 11:37 | Inpatient (IN) | payer OTHER, BC ==
[~2020-09-02] VITALS: Ht 185.3 cm; Wt 70.8 kg
[~2020-09-02 11:37] MED LIST changes: +AZACTAM 1 GM VIA1 G1 IV; +AZITHROMYCIN500 M1 IV; +ELIQUIS5 MG PO; +ENOXAPARIN30 MG/0.1 SUBQ; +FELODIPINE 5 MG5 M1 PO; +IRON325 M1 PO; +PREDNISONE 20 M20 M1 PO; +PROBIOTIC1 EAC1 PO; +TOPROL XL25 MG PO; +VITAMIN D325 MC1 PO
[2020-09-02 11:42] VITALS: BP 129/73
[2020-09-02 12:21] LABS: ABSOLUTE NEUTROPHILS 3.8 thou/uL (1.4-8.2); BASOPHILS 0.9 % (0.0-2.0); EOSINOPHILS 2.4 % (0.0-3.0); HEMATOCRIT 28.4 % (37.0-47.0); HEMOGLOBIN 9.3 gm/dL (12.0-15.0); LYMPHOCYTES 38.4 % (24.0-44.0); MCH 34.5 pg (26.0-34.0); MCHC 32.9 g/dL (28.0-37.0); MCV 104.8 fL (80.0-100.0); MONOCYTES 7.6 % (1.0-8.0); PLATELET COUNT 223 thou/uL (150-400); POLYS 50.7 % (36.0-66.0); RBC 2.71 mil/uL (4.20-5.00); RDW 17.8 % (10.5-14.5); WBC 7.4 thou/uL (4.0-11.0)
--- NOTE | 2020-09-02 12:23 | EKG ---
[facility] [place] [address] ELECTROCARDIOGRAM REPORT Name: KISHA STRICKLAND Room #: PRE M.R.#: [id number] Admission: Attend Phys: Discharge: Date of : 43 Report #: [id number] THIS REPORT FOR: cc: Eder Hills MD, David A. MD Lundgren,Jl Bang MD [facility] ~ THIS REPORT FOR: //name// [facility] ED Test Date: 2020-09-02 Test Time: 12:05:22 Pat Name: KISHA STRICKLAND Department: Room: Gender: F Barrel Raiser: [facility] : 1945 Requested By: Doug Bergman Order Number: [id number] MD: Jl Mckeon Measurements Intervals [place] Rate: 79 P: ID: QRS: 3 QRSD: 96 T: 1 QT: 411 QTc: 472 Interpretive Statements Sinus rhythm Low voltage, extremity leads Baseline wander in lead(s) II,III,aVF Compared to ECG 07/07/2020 13:35:26 No significant change was found Electronically Signed On 09-02-2020 12:23:27 CDT by Jl Mckeon [email or web address] <ELECTRONICALLY SIGNED> By: Jl Mckeon MD, FACC 09/02/20 1223 1205 1205 Jl Mckeon MD, [facility] /EPI
[2020-09-02 12:29] LABS: ANION GAP 4 mmol/L (7-16); BUN 10 mg/dL (7-18); CALCIUM 8.8 mg/dL (8.5-10.1); CHLORIDE 105 mmol/L (98-107); CO2 31 mmol/L (21-32); CREATININE 0.6 mg/dL (0.6-1.0); GLUCOSE 91 mg/dL (74-106); POTASSIUM 3.6 mmol/L (3.5-5.1); SODIUM 140 mmol/L (136-145)
[2020-09-02 12:38] LABS: TROPONIN-I <0.06 ng/mL (<0.06)
[2020-09-02 12:45] LABS: BE(vivo) 3.5 mmol/L (-2 to +3); HCO3 27.7 mmol/L (22.0-26.0); PCO2 40.6 mmHg (35.0-45.0); PO2 87.9 mmHg (80.0-100.0); pH 7.452 (7.360-7.450); sO2 97.1 % (92.0-98.0)
[2020-09-02 13:26] LABS: ANISOCYTOSIS 1+; MACROCYTES 1+; OVALOCYTES OCCASIONAL; POLYCHROMASIA OCCASIONAL
[2020-09-02 16:15] LABS: INR 1.2; PROTIME 12.2 Seconds (9.3-11.4)
[2020-09-02 17:55] VITALS: BP 117/66
[2020-09-02 19:10] VITALS: BP 110/74
[2020-09-02 19:25] VITALS: BP 122/78
--- NOTE | 2020-09-03 02:18 | NUR ---
Pt admitted from ED at 1910. A/OX4,pleasant, VSS. Denies pain on assessment but reports it was her feet were hurting too much prior to admission d/t increased edema. Edema noted 3+ on BLE,dyspnea on exertion noted. Pt reports being tired and just wants to rest, up w/SBA. NSR on telemetry. Skin intact with dryness noted allover. Fall precautions in place,reminded to call for help as needed. Resting quietly at this time,will continue to monitor pt.
[2020-09-03 05:23] VITALS: BP 100/61
[2020-09-03 06:48] LABS: HEMATOCRIT 27.5 % (37.0-47.0); HEMOGLOBIN 8.9 gm/dL (12.0-15.0); MCH 34.4 pg (26.0-34.0); MCHC 32.5 g/dL (28.0-37.0); MCV 105.7 fL (80.0-100.0); RBC 2.6 mil/uL (4.20-5.00); RDW 17.8 % (10.5-14.5); WBC 7.6 thou/uL (4.0-11.0)
[2020-09-03 07:00] LABS: CALCIUM 8.8 mg/dL (8.5-10.1); CREATININE 0.6 mg/dL (0.6-1.0); MAGNESIUM 1.8 mg/dL (1.8-2.4); POTASSIUM 3.5 mmol/L (3.5-5.1)
[2020-09-03 07:26] VITALS: BP 104/67
--- NOTE | 2020-09-03 11:43 | NUR ---
Met with patient who has a recent dc home from [facility] in Jul with HH from [facility]. Patient resides at home with spouse. She reports spouse in good health. She has family that is attentive and often provide meals. Patient steps to basement in home and steps to second level. She reports she does not go to basement area. She uses walker in home and community. She plans dc home with resumption of [facility] care. PCP Dr Eder Hills. Sp with [facility] and sent updates. [facility] following
[2020-09-03 15:12] VITALS: BP 107/63
--- NOTE | 2020-09-03 19:58 | NUR ---
Assumed pt care this am, VS stable, anasarca noted on both legs, pain is noted with movement. Is able to use the commode, on 1500 fluids restrictions. 2l of O2 via NC, currently being diuresed. Diet and medications are tolerated well, POC followed. endorsed to the night nurse.
[2020-09-03 20:33] VITALS: BP 125/59
--- NOTE | 2020-09-04 04:44 | NUR ---
ASSUMED CARE OF PT AT 1900. PT IS A/O X4 AND IS UP X1 TO THE BSC. PT DENIES ANY PAIN OR DISCOMFORT. EDEMA IN LOWER EXTREMITIES, LEGS AND HEELS ELEVATED ON PILLOWS. VSS. SR ON THE MONITOR. AT THIS TIME PT IS LYING IN HER BED AND APPEARS TO BE SLEEPING. FALL PRECAUTIONS ARE IN PLACE, CALL LIGHT IS WITHIN REACH. WILL CONTINUE TO MONITOR.
[2020-09-04 05:12] LABS: CALCIUM 9.1 mg/dL (8.5-10.1); CREATININE 0.7 mg/dL (0.6-1.0); POTASSIUM 3.1 mmol/L (3.5-5.1)
[2020-09-04 05:31] LABS: HEMATOCRIT 28.5 % (37.0-47.0); HEMOGLOBIN 9.3 gm/dL (12.0-15.0); MCHC 32.6 g/dL (28.0-37.0); MCV 104.2 fL (80.0-100.0); RBC 2.74 mil/uL (4.20-5.00); RDW 17.3 % (10.5-14.5); WBC 7.1 thou/uL (4.0-11.0)
[2020-09-04 06:55] LABS: TOTAL PROTEIN 5.2 g/dL (6.4-8.2)
[2020-09-04 07:38] VITALS: BP 109/72
[2020-09-04 08:55] LABS: INR 1.3; PROTIME 13.1 Seconds (9.3-11.4)
--- NOTE | 2020-09-04 12:06 | NUR ---
CARE TEAM ARE INDICATING THAT PT WILL LIKELY BE MEDICALLY STABLE TO DISCAHRGE HOME WITH RESUMPTION OF HER [facility] SERVICES ONCE MEDICALLY STABLE POSSIBLY OVER THE WEEKEND. SHOULD PT BE MEDICALLY STABLE TO DC HOME ORDERS WILL BEED TO BE FAXED TO [facility] AT . PT HAS ALL RECOMMENDED DME. FAMILY WOULD PROVIDE TRANSPORT.
[2020-09-04 17:29] VITALS: BP 117/76
[2020-09-04 19:15] VITALS: BP 117/78
--- NOTE | 2020-09-04 19:44 | NUR ---
Assumed pt care this am, daily wt done and recorded. Pt has significant out put and is continent of both bladder and bowel. Edema on BLE have decrease thought th left LE is bigger than the right. POC followed with no signs of distress. Diet and medication are tolerated well. Maintained less than 1500 cc fluid restriction for this sift. Endorsed to the night nurse.
--- NOTE | 2020-09-05 03:42 | NUR ---
PT IS A/O X4 AND UP WITH ASSISTANCE TO THE BSC. DENIES ANY C/O PAIN OR DISCOMFORT. FALL PRECAUTIONS ARE IN PLACE, CALL LIGHT IS WITHIN REACH. AT THIS TIME, PT IS LYING IN HER BED AND APPEARS TO BE SLEEPING. WILL CONTINUE TO MONITOR.
[2020-09-05 05:56] LABS: INR 1.2; PROTIME 12.6 Seconds (9.3-11.4)
[2020-09-05 06:08] LABS: CREATININE 0.8 mg/dL (0.6-1.0); POTASSIUM 3.4 mmol/L (3.5-5.1)
[2020-09-05 08:00] VITALS: BP 105/68
[2020-09-05] MEDS ORDERED: K-DUR 20 MEQ T20 MEQ PO (09:46)
[2020-09-05] MEDS ORDERED: TORSEMIDE20 MG PO (09:46)
[2020-09-05] MEDS ORDERED: WARFARIN SODIUM5 MG PO (09:46)
[2020-09-05] MEDS ORDERED: ALDACTONE50 MG PO (09:46)
[2020-09-05 11:50] VITALS: BP 105/68
--- NOTE | 2020-09-05 13:53 | NUR ---
Received awake on bed. Due medications given as prescribed, able to swallow meds w/o difficulty. On room air. Vital signs stable. On telemetry; no complains and signs of chest pain, crushing sensation and heaviness. A+OX4. On heart healthy diet- tolerating well; no nausea, no vomiting and no abdominal pain noted. Continent of bowel and bladder, able to use bedside commode with standby assist. Falls bundle in place. Able to sit out on the chair during meal times. Assisted in ADLs. With SL at R FA- intact and flushing well. With edema noted on bilat legs, kept elevated; skin intact. Pt seen and examined by Dr Oquendo, discharge orders made- CM made aware to set up HH. Discharge instructions and summary faxed to [facility] as instructed on CM notes. Faxed and sent successfully. IV discontinued. Telemetry discontinued as well, monitor returned. Discharge instructions and follow up schedule given and instructed, discharge forms signed. Given emphasis on fluid restriction and daily weights. Pt informed that prescriptions went electronically. Pt fetched by her daughter. Brought out of the unit via wheelchair with her personal belongings. Patient discharged.
== END 2020-09-05 12:47 | disposition home health service (06) | DRG 291 ==
LOC: ER 11:37 → 4W 13:06 → EROBS 13:06 → 4W 19:10
PROVIDERS: Emergency Medicine; Internal Medicine; ADMIT Hospitalist; ATTEND Hospitalist
DX: I11.0 Hypertensive heart disease with heart failure (principal); J96.01 Acute respiratory failure with hypoxia; E46 Unspecified protein-calorie malnutrition; I50.33 Acute on chronic diastolic (congestive) heart failure; E11.9 Type 2 diabetes mellitus without complications; J45.909 Unspecified asthma, uncomplicated; Z96.652 Presence of left artificial knee joint; E03.9 Hypothyroidism, unspecified; Z60.2 Problems related to living alone; I27.20 Pulmonary hypertension, unspecified; D50.9 Iron deficiency anemia, unspecified; E55.9 Vitamin D deficiency, unspecified; Z68.20 Body mass index [BMI] 20.0-20.9, adult; Z91.19 Patient's noncompliance with other medical treatment and regimen; Z90.710 Acquired absence of both cervix and uterus; Z86.718 Personal history of other venous thrombosis and embolism; Z86.711 Personal history of pulmonary embolism; Z88.0 Allergy status to penicillin; Z88.2 Allergy status to sulfonamides; Z88.8 Allergy status to other drugs, medicaments and biological substances; Z91.040 Latex allergy status; Z83.3 Family history of diabetes mellitus; Z82.49 Family history of ischemic heart disease and other diseases of the circulatory system; Z82.3 Family history of stroke; Z79.899 Other long term (current) drug therapy
CPT/HCPCS: 10045

== ENCOUNTER → 2020-10-08 | Outpatient (CLI) | payer OTHER, BC ==
[~2020-10-08] MED LIST changes: +ALDACTONE50 MG PO; +TORSEMIDE20 MG PO; +WARFARIN SODIUM5 MG PO
== END ==
LOC: SJCVC 11:05
PROVIDERS: ATTEND Internal Medicine
DX: R94.31 Abnormal electrocardiogram [ECG] [EKG] (principal); I11.0 Hypertensive heart disease with heart failure; I50.32 Chronic diastolic (congestive) heart failure; E78.5 Hyperlipidemia, unspecified; E11.9 Type 2 diabetes mellitus without complications; J45.50 Severe persistent asthma, uncomplicated; I27.82 Chronic pulmonary embolism; D50.0 Iron deficiency anemia secondary to blood loss (chronic); Z79.01 Long term (current) use of anticoagulants; Z79.899 Other long term (current) drug therapy

== ENCOUNTER 2021-01-30 10:26 | Inpatient (IN) | payer OTHER, BC ==
[~2021-01-30] VITALS: Ht 160 cm; Wt 65.3 kg
[2021-01-30] VITALS (21 sets, daily range): BP systolic 79–123; BP diastolic 17–70
[2021-01-30] MEDS ORDERED: KLOR-CON M2020 MEQ PO (10:52)
[2021-01-30] MEDS ORDERED: CARVEDILOL6.25 M1 PO (10:54)
[2021-01-30] MEDS ORDERED: NORVASC5 MG PO (10:54)
[2021-01-30] MEDS ORDERED: SPIRONOLACTONE50 MG PO (10:55)
[2021-01-30 10:59] LABS: ABSOLUTE NEUTROPHILS 5.8 thou/uL (1.4-8.2); BASOPHILS 0.7 % (0.0-2.0); EOSINOPHILS 1.2 % (0.0-3.0); HEMATOCRIT 28.6 % (37.0-47.0); HEMOGLOBIN 9.3 gm/dL (12.0-15.0); LYMPHOCYTES 15.9 % (24.0-44.0); MCH 33.2 pg (26.0-34.0); MCHC 32.5 g/dL (28.0-37.0); MCV 102.4 fL (80.0-100.0); MONOCYTES 5.2 % (1.0-8.0); PLATELET COUNT 223 thou/uL (150-400); RBC 2.79 mil/uL (4.20-5.00); RDW 15.4 % (10.5-14.5); WBC 7.5 thou/uL (4.0-11.0)
[2021-01-30 11:05] LABS: CALCIUM 9.6 mg/dL (8.5-10.1); CREATININE 1.3 mg/dL (0.6-1.0); POTASSIUM 4.6 mmol/L (3.5-5.1)
[2021-01-30 12:49] LABS: INR > 8.0
[2021-01-30 18:13] LABS: HEMOGLOBIN 7.8 gm/dL (12.0-15.0)
--- NOTE | 2021-01-30 18:18 | NUR ---
RECEIEVED PT FROM THE ER. PT ADMITTED WITH TONGUE BLEED AND INCREASED INR. PT IS AXOX4, PLEASANT. PT IS GOOD HISTORIAN. VS BP79/44, HR79. LAB DRAWN HGB 7.8, HCT 24.0. CONSULTED DR CALLE FOR PT DIET. POC IS ON BLOOD THINNERS (WARFARIN). PT IS PATIENT OF DR DUMONT. POC IS TO CONTINUE TO MONITOR BP/HR; FALL PRECAUTIONS IN PLACE.
[2021-01-30 20:16] LABS: PROTIME 18.5 Seconds (9.3-11.4)
[2021-01-30 20:21] LABS: INR 1.7
[2021-01-31] VITALS (45 sets, daily range): BP systolic 91–127; BP diastolic 27–94
[2021-01-31 00:41] LABS: HEMATOCRIT 27.3 % (37.0-47.0)
[2021-01-31 05:27] LABS: ABSOLUTE NEUTROPHILS 4.9 thou/uL (1.4-8.2); BASOPHILS 0.6 % (0.0-2.0); EOSINOPHILS 1.9 % (0.0-3.0); HEMATOCRIT 25.9 % (37.0-47.0); HEMOGLOBIN 8.6 gm/dL (12.0-15.0); LYMPHOCYTES 17.1 % (24.0-44.0); MCH 32.9 pg (26.0-34.0); MCHC 33.3 g/dL (28.0-37.0); MCV 99.1 fL (80.0-100.0); MONOCYTES 7.3 % (1.0-8.0); PLATELET COUNT 196 thou/uL (150-400); POLYS 73.1 % (36.0-66.0); RBC 2.62 mil/uL (4.20-5.00); RDW 17.1 % (10.5-14.5); WBC 6.8 thou/uL (4.0-11.0)
[2021-01-31 05:34] LABS: INR 1.4; PROTIME 14.5 Seconds (9.3-11.4)
[2021-01-31 05:50] LABS: ALBUMIN 2.2 g/dL (3.4-5.0); CALCIUM 8.7 mg/dL (8.5-10.1); CREATININE 0.9 mg/dL (0.6-1.0); MAGNESIUM 1.8 mg/dL (1.8-2.4); PHOSPHORUS 2.8 mg/dL (2.5-4.9); TOTAL BILIRUBIN 0.6 mg/dL (0.2-1.0); TOTAL PROTEIN 5.5 g/dL (6.4-8.2)
--- NOTE | 2021-01-31 06:05 | NUR ---
Patient here from 2N 1929. Patient awake but states she is very tired. Initial accucheck low. Gave dextrose and started D5 NS per order. Rechecked frequently through the night and blood sugars have remained above 100. Initial blood pressures stable but did become low in the 80's around 2230. Levophed started at 3 mcgs/min and remains at that rate. Heart rate and rhythm stable. Patient has remained afebrile. 1 unit packed cells transfused per order. Hgb up to 9 post transfusion. Patient tried to urinate while on bedpan without success. Unable to get patient out of bed to to being hemodynamically unstable. Bladder scanned done. Pt had 890 mls in bladder. Mcduffie placed with immediate return of clear yellow urine. Patient taking sips of water well. Takes pills well. No further bleeding from tongue. Am labs drawn and results noted. See documentation on interventions for assessment details. Patient is progressing towards goals.
--- NOTE | 2021-01-31 18:11 | NUR ---
PT MOVING TOWARDS GOALS. UNABLE TO WEAN LEVOPHED. NO FAMILY CALLS OR VISITS TODAY. COMPLAINING OF TOE PAIN. PODIATRY WILL SEE PT IN AM. ENT CONSULT FOR TOUNGE. NO CALL BACK AT THIS TIME. NO BLEEDING NOTED.
[2021-02-01] VITALS (39 sets, daily range): BP systolic 81–138; BP diastolic 17–96
[2021-02-01 05:37] LABS: HEMATOCRIT 26.1 % (37.0-47.0); HEMOGLOBIN 8.6 gm/dL (12.0-15.0); MCH 33.1 pg (26.0-34.0); MCHC 32.9 g/dL (28.0-37.0); MCV 100.6 fL (80.0-100.0); RBC 2.59 mil/uL (4.20-5.00); RDW 16.6 % (10.5-14.5); WBC 7.7 thou/uL (4.0-11.0)
[2021-02-01 05:54] LABS: INR 1.5; PROTIME 15.6 Seconds (9.3-11.4)
[2021-02-01 05:58] LABS: CALCIUM 8.4 mg/dL (8.5-10.1); CREATININE 0.7 mg/dL (0.6-1.0); MAGNESIUM 1.8 mg/dL (1.8-2.4); PHOSPHORUS 2.4 mg/dL (2.5-4.9)
[2021-02-01 05:59] LABS: POTASSIUM 4.7 mmol/L (3.5-5.1)
--- NOTE | 2021-02-01 06:00 | NUR ---
PT AWAKE AND ALERT. WANTING TO ORDER BREAKFAST. REMAINS ON LEVO 1 MCG TO KEEP SBP > 100 SLEPT AT INTERVALS TONIGHT, AN ADORABLE LITTLE LADY. PROGRESSING TOWARD GOALS.
[2021-02-01 08:02] LABS: HEMATOCRIT 27.9 % (37.0-47.0); HEMOGLOBIN 9.1 gm/dL (12.0-15.0); MCH 32.7 pg (26.0-34.0); MCHC 32.5 g/dL (28.0-37.0); MCV 100.6 fL (80.0-100.0); RBC 2.77 mil/uL (4.20-5.00); RDW 16.7 % (10.5-14.5); WBC 7.9 thou/uL (4.0-11.0)
[2021-02-01 08:07] LABS: INR 1.5; PROTIME 16.2 Seconds (9.3-11.4)
[2021-02-01 08:12] LABS: ALBUMIN 2.1 g/dL (3.4-5.0); CALCIUM 8.8 mg/dL (8.5-10.1); CREATININE 0.8 mg/dL (0.6-1.0); MAGNESIUM 1.8 mg/dL (1.8-2.4); PHOSPHORUS 2.2 mg/dL (2.5-4.9); TOTAL BILIRUBIN 0.4 mg/dL (0.2-1.0); TOTAL PROTEIN 5.3 g/dL (6.4-8.2)
[2021-02-01 08:29] LABS: POTASSIUM 3.7 mmol/L (3.5-5.1)
[2021-02-01 09:06] LABS: IgA 36 mg/dL (64-422); IgG 746 mg/dL (586-1602); IgM 12 mg/dL (26-217)
--- NOTE | 2021-02-01 11:00 | NUR ---
ASSUMED CARE OF PT AT 0700 LEVO STOPPED AT 1055 ELISEO AT BEDSIDE AT 1045 AND GAVE ORDERS FOR TRANSFER TO [facility] TELE PT MEETING GOALS
--- NOTE | 2021-02-01 12:11 | NUR ---
chart review. discussed during rounds, possible out of icu to cc tele. she been her in past, noted [facility]. lives at home with , 1 step to enter and 12 step to basement. " i just started bitting my tong at night and it was bleeding what can i do?"/rere. education to ask dr, might need to see denisit or use night nlisa but to as the Dr. education or hh or rehab " oh thats ok, i will not need hh or rehab this time, tell everyone on rehab hello"/rere. dcp home with . will cont following as needed for dc needs.
--- NOTE | 2021-02-01 12:32 | HC ---
[facility] [place] [address] CONSULTATION Name: KISHA STRICKLAND Room #: 250-P ADM IN M.R.#: [id number] Admission: 01/30/21 Attend Phys: Mónica Thomas MD Discharge: Date of : 43 Report #: [id number] THIS REPORT FOR: cc: Eder Hills MD, David A. MD Jameson, Stephanie L. 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 The patient seen at bedside by Podiatry for pain to the right big toe. The patient states it wakes her up at night occasionally. The patient does deny any trauma to her toe. The patient states that she often has to hang her foot over the side of the bed to get relief. The patient denies fevers, chills, nausea, vomiting. On physical exam, difficulty palpating pulses, but feet are warm to touch overall. Protective sensation intact to all pedal dermatomes. There is a hallux valgus and some hammertoes 2 through 5 present, bilateral. On the right her all toenails are dystrophic and thickened. On the right hallux nail, the distal half is elevated and loose and following debridement, there is a healed superficial granular eschar along with a callus to the distal medial tuft of the toe. This area has some tenderness, but there are no acute signs of infection. No probing, no tracking, no undermining, no drainage, no abscess or fluctuance. Remaining proximal aspect of the nail was left intact as it was well adhered. Left foot with no breaks in the skin or areas of discomfort. ASSESSMENT AND PLAN: A 75-year-old female being seen by Podiatry for right great toenail pain. The patient denies trauma to the toenail, although the distal aspect was loose with a stable healing superficial wound that is near healed. Recommend topical antibiotic and offloading the area with padding daily. One of my concern is that she may have some arterial insufficiency causing the intermittent discomfort. The patient admits to intermittent rest pain. I would recommend arterial duplex for further assessment of this whether now as an inpatient or within the next week as an outpatient. There are no acute signs of infection to the right foot and do not recommend any further imaging at this time as there are no signs of any yet, do not recommend any further imaging at this time. Please reconsult me if any new issues arise. <ELECTRONICALLY SIGNED> By: Loraine Sinclair DPM 02/01/21 1232 [id number] Loraine Sinclair DPM /nt
[2021-02-02] VITALS (10 sets, daily range): BP systolic 97–121; BP diastolic 35–72
--- NOTE | 2021-02-02 06:40 | NUR ---
Pt has CC tele orders. Awaiting open bed. VSS. Fluids running. Progressing towards goals. Tolerated walking to bsc with walker but easily fatigues.
[2021-02-02 13:09] LABS: IFEU COMMENT Note: (())
--- NOTE | 2021-02-02 13:18 | NUR ---
RECEIVED PT FROM ICU. PT IS AXOX4, PLEASANT, SOFT SPOKEN. PT IS RESTING COMFORTABLY IN BED. VSS, AFEBRILE. LOAN PROCESSOR PLACED ON PT. PT DENIES PAIN, WANTS TO NAP. FALL PRECAUTIONS IN PLACE. NO CONCERN AT THIS TIME.
[2021-02-02 17:07] LABS: KAPPA FREE LIGHT CHAINS 15.3 mg/L (3.3-19.4); KAPPA/LAMBDA RATIO 0.01 (0.26-1.65); LAMBDA FREE LIGHT CHAINS 1463.2 mg/L (5.7-26.3)
[2021-02-03 03:55] VITALS: BP 125/67
[2021-02-03 06:43] LABS: CALCIUM 9.3 mg/dL (8.5-10.1); CREATININE 0.8 mg/dL (0.6-1.0); POTASSIUM 4.3 mmol/L (3.5-5.1)
[2021-02-03 09:13] VITALS: BP 106/67
[2021-02-03 12:00] VITALS: BP 115/22
--- NOTE | 2021-02-03 15:14 | NUR ---
PT IS AXOX4, PLEASANT. VSS, AFEBRILE. PT/OT WORKING WITH PT WHEN PT STATED LEFT ARM FELT TENDER. LEFT ARM COMPARED TO RIGHT ARM, AND ARM WAS COOL TO THE TOUCH, INFILTRATED, EDEMATOUS, AND CORDED. TWO PIV L WRIST AND L FOREARM. ELISEO CONSULTED. VAD CONSULTED. US VENOUS STUDY DONE ON LEFT ARM. SCAN INDICATED A THROMBUS IN L ARM. NEW PIV PLACED IN R FOREARM BY VAD. PT EDUCATED ON NEW IV. WILL CONTINUE TO MONITOR IV SITE. NO CONCERNS AT THIS TIME.
[2021-02-03 16:00] VITALS: BP 127/27
[2021-02-03 20:08] VITALS: BP 129/37
[2021-02-04 04:30] VITALS: BP 122/22
[2021-02-04 06:17] LABS: CALCIUM 9.2 mg/dL (8.5-10.1); CREATININE 0.8 mg/dL (0.6-1.0); POTASSIUM 4.3 mmol/L (3.5-5.1)
[2021-02-04 07:32] VITALS: BP 99/70
[2021-02-04 09:55] LABS: % SATURATION 46 % (20-39); IRON 49 ug/dL (50-170); TIBC 107 ug/dL (250-450)
--- NOTE | 2021-02-04 13:59 | NUR ---
PT IS AXOX4, PLEASANT, SOFT SPOKEN. DR GOMES CONSULTED. PT LEFT ARM IS "STOCK CHECKER AND HURTS." CHEST XRAY CONDUCTED IN AM. PT/OT CONSULTED. POC IS CONTINUE TO MONITOR PT O2 SAT, DR GOLDSTEIN CONSULTED; STRICT I&Os. WILL CONTINUE TO MONITOR PT O2 SAT. PT ON 3LNC, NO HOME OXYGEN; RT CONSULTED. VSS, AFEBRILE. FALL PRECAUTIONS IN PLACE. NO CONCERNS AT THIS TIME.
[2021-02-04 15:13] VITALS: BP 111/48
--- NOTE | 2021-02-04 17:28 | NUR ---
dc planning needs/efforts discussed with the pt at bedside. She is aware that [facility] is not able to accept her as she was there last fall with similar dx. She does not want to consider any other rehab/snf options and prefers to go home at dc. She is not sure if she wants hh at dc as she feels her family is able to help her. Current functional status and therapy recommendations reviewed and encouragement given for pt to consider snf or hh at dc. She is on 3liters of o2 currently and does not have home o2. Encouragement given for her to discuss her care needs and options with her spouse and dtrs as well to get their imput since she is dependent on them to maintain living in her home. Will follow.
[2021-02-04 19:44] VITALS: BP 111/34
[2021-02-05 00:13] VITALS: BP 110/53
[2021-02-05 03:33] VITALS: BP 112/63
[2021-02-05 09:13] VITALS: BP 96/45
[2021-02-05 16:00] VITALS: BP 132/64
[2021-02-05 18:06] LABS: GLOBULIN TOTAL 2.7 g/dL (2.2-3.9); M-SPIKE Not Observed g/dL (Not Observed)
--- NOTE | 2021-02-05 18:27 | NUR ---
ASSUMED CARE OF PT AT SHIFT CHANGE. ASSESSMENTS CHARTED. MEDS GIVEN PER JAN. PT A&OX4, C/O OF NON-CARDIAC CHEST PAIN, DECLINED PAIN MEDS. PLAN FOR BONE MARROW BIOPSY ON MONDAY. HOLD ELIQUIS AND LOVENOX OVER WEEKEND. WILL CONTINUE TO MONITOR FOR CHANGES AND FOLLOW POC.
[2021-02-05 19:17] VITALS: BP 124/73
[2021-02-06 03:30] VITALS: BP 114/73
--- NOTE | 2021-02-06 05:30 | NUR ---
RIGHT FOOT PAIN WELL CONTROLLED.DENIES NEEDS.MONITOR SHOWS SR.POC CONTINUED.
[2021-02-06 05:42] LABS: CALCIUM 9.5 mg/dL (8.5-10.1); CREATININE 1.6 mg/dL (0.6-1.0); POTASSIUM 4.6 mmol/L (3.5-5.1)
[2021-02-06 07:30] VITALS: BP 113/50
[2021-02-06 15:30] VITALS: BP 110/61
[2021-02-06 19:21] VITALS: BP 121/66
[2021-02-07 03:46] VITALS: BP 119/74
--- NOTE | 2021-02-07 05:41 | NUR ---
SLEPT MOST OF SHIFT. DENIES COMPLAINTS OF PAIN THIS SHIFT. NO BLEEDING NOTED. WORKING ON GOALS AND PLAN FO CARE FOR NOC. PROGRESSING SLOWLY TOWARDS DISCHARGE GOALS. CONTINUE TO ASSES CLOSELY.
[2021-02-07 07:43] VITALS: BP 124/62
--- NOTE | 2021-02-07 08:00 | NUR ---
STRUCTURAL STEEL SHOP SUPERVISOR REPORTS BLOOD GLUCOSE 36. PT ASYMPTOMATIC. ADMINISTERED ORANGE JUICE AND PT AT BREAKFAST FOLLOWING. THIS RN THOUGHT REPEAT GLUCOSE BY STRUCTURAL STEEL SHOP SUPERVISOR WAS 110 BUT WE MUST HAVE BEEN MISTAKEN BY ANOTHER PATIENT.
[2021-02-07 11:57] VITALS: BP 116/80
[2021-02-07 15:45] VITALS: BP 114/59
[2021-02-07 17:24] LABS: APTT 36.6 Seconds (24.5-32.8); INR 1.7; PROTIME 18.2 Seconds (9.3-11.4)
[2021-02-07 19:43] VITALS: BP 135/76
[2021-02-08 03:48] LABS: HEMATOCRIT 28.8 % (37.0-47.0); HEMOGLOBIN 9.8 gm/dL (12.0-15.0); MCHC 33.8 g/dL (28.0-37.0); MCV 100.5 fL (80.0-100.0); RBC 2.87 mil/uL (4.20-5.00); WBC 7.7 thou/uL (4.0-11.0)
[2021-02-08 04:01] LABS: CALCIUM 9.9 mg/dL (8.5-10.1); CREATININE 1.8 mg/dL (0.6-1.0); POTASSIUM 4.5 mmol/L (3.5-5.1)
[2021-02-08 04:24] VITALS: BP 112/66
[2021-02-08 08:00] VITALS: BP 121/51
--- NOTE | 2021-02-08 08:20 | NUR ---
SLEPT MOST OF SHIFT. DENIES COMPLAINTS OF PAIN THIS SHIFT. WORKING ON GOALS AND PLAN OF CARE FOR NOC. NPO FOR POSSIBLE BONE MARROW BIOPSY TODAY. CONTINUE TO ASSJARRETT JAMES.
[2021-02-08 11:48] VITALS: BP 107/68
--- NOTE | 2021-02-08 13:47 | NUR ---
PT IS AXOX4, PLEASANT. PT HAS BEEN NPO SINCE MIDNIGHT FOR BONE MARROW BIOPSY. PT DENIES PAIN, DENIES SOA. PT HAS BEEN UP X1 TO BEDSIDE COMMODE. PT SITTING IN CHAIR, RESTING COMFORTABLY. PT HAS BEEN INFORMED OF BIOPSY, COMMUNICATES UNDERSTANDING. WILL CONTINUE NPO UNTIL IR COMPLETES OR RESCHEDULES BIOPSY. POC IS TO CONTINUE TO MONITOR HR/BP, BLOOD SUGAR, I&Os. PT/OT CONSULTED. DR SHAY CONSULTED. FALL PRECAUTIONS IN PLACE. NO CONCERNS AT THIS TIME.
[2021-02-08 16:00] VITALS: BP 107/62
[2021-02-08 18:06] LABS: URINE PROTEIN (MG/DL) 69.5 mg/dL (Not Estab.)
[2021-02-08 21:49] VITALS: BP 114/64
[2021-02-09] VITALS (8 sets, daily range): BP systolic 101–140; BP diastolic 31–74
[2021-02-09 04:48] LABS: INR 1.4; PROTIME 14.6 Seconds (9.3-11.4)
--- NOTE | 2021-02-09 08:06 | NUR ---
SLEPT MOST OF SHIFT. TURNS SELF IN BED NEEDED. NOTED URINE IN VASQUEZ IS BLOOD TINGED. VASQUEZ RESECURED. NOTIFIED YAN EDUCATIONAL INTERPRETER AT 0620 AND NO NEW ORDERS RECIEVED. WORKING ON GOALS AND PLAN OF CARE FOR NOC. NPO FOR AM BONE MARROW BIOPSY. DENIES COMPLAINTS OF PAIN OR SHORTNESS OF AIR. CONTINUE TO ASSES CLOSELY.
[2021-02-09 10:11] LABS: ABSOLUTE NEUTROPHILS 6.9 thou/uL (1.4-8.2); BASOPHILS 0.2 % (0.0-2.0); EOSINOPHILS 0.1 % (0.0-3.0); HEMATOCRIT 29.8 % (37.0-47.0); LYMPHOCYTES 7.5 % (24.0-44.0); MCH 33.9 pg (26.0-34.0); MCHC 33.6 g/dL (28.0-37.0); MCV 100.7 fL (80.0-100.0); MONOCYTES 4.4 % (1.0-8.0); PLATELET COUNT 283 thou/uL (150-400); POLYS 87.8 % (36.0-66.0); RBC 2.96 mil/uL (4.20-5.00); WBC 7.9 thou/uL (4.0-11.0)
[2021-02-09 11:53] LABS: CALCIUM 9.9 mg/dL (8.5-10.1); CREATININE 1.6 mg/dL (0.6-1.0); POTASSIUM 4.6 mmol/L (3.5-5.1)
--- NOTE | 2021-02-09 13:05 | NUR ---
PT AXOX4, PLEASANT; BONE MARROW BIOPSY THIS AM; CONSENT SIGNED; PT HAS BEEN NPO SINCE MIDNIGHT. NO CONCERNS AT THIS TIME.
--- NOTE | 2021-02-09 16:31 | NUR ---
Spoke with patient regarding dc planning. Offered skilled rehab.HH. Patient wants none. Offered to call dtr earlier today and patient said no they are at work. Later asked if could call dtr. Alerted wanted dtr to know possible dc in am and refusal of skilled/HH. Patient reports her dtr knows she has told her she is not going to facility. She reports she has been to [facility] in the past. She reports during this time of Covid she does not want skilled/HH. She was upset today hoping she was going to go home. Alerted if she changes her theresa at home she can call PCP. If within 24/48 hours she can call casemgt.
[2021-02-10 04:49] VITALS: BP 120/76
[2021-02-10 07:30] VITALS: BP 115/71
[2021-02-10] MEDS ORDERED: ELIQUIS5 M1 PO (11:28)
[2021-02-10] MEDS ORDERED: PREDNISONE 10 M10 M1 PO (11:31)
[2021-02-10] MEDS ORDERED: SYNTHROID100 MC1 PO (11:31)
[2021-02-10 12:09] VITALS: BP 115/71
[2021-02-10 12:45] VITALS: BP 115/71
--- NOTE | 2021-02-10 18:22 | NUR ---
Patient discharged home today. Encouraged patient to consider home health and skilled rehab. She reports her family assists with her care.
--- NOTE | 2021-02-12 13:02 | NUR ---
FAXED REFERRAL WITH NEGATIVE COVID RESULT AND BYIQ-TO-LFBL TO [facility] TO SEE PATIENT FOR PHYSICAL THERAPY EVALUATION. PCP KATELYN SILVERMAN MD. [facility] P [phone]; FAX [phone] AND FAXED REFERRAL WITH NEGATIVE COVID RESULT AND RUBE-SX-BZON TO [facility] FOR ADMISSION FROM HOME. [facility] P [phone]; FAX [phone]
--- NOTE | 2021-02-12 14:43 | NUR ---
Pt dc'd to home on 02-10 and call back rec'd today from her and her spouse requesting help with SNF placement at [facility]. [facility] contacted and they do not have a bed available until Monday. They also will need a HH RN/PT estefani. Pt and spouse updated and they are interested in using [facility]. HH orders obtained from the attending Dr. Horton and faxed per the dc senior production planner to both [facility] and [facility] SNF. Kylah at [facility] will f/u and coordinate with the pt. All parties aware the pt's desire for snf stay. The pt was provided with contact numbers for both the HH/SNF for f/u. She notes she had left a message for her pcp Dr. Hills but his office is closed on Monday afternoons.
== END 2021-02-10 14:29 | disposition home health service (06) | DRG 814 ==
LOC: ER 10:26 → ICU 14:16 → EROBS 14:16 → 2N 17:18 → ICU 17:45 → 2N 02-02 12:54
PROVIDERS: Emergency Medicine; Hospitalist; Internal Medicine; Internal Medicine Hematology & Oncology; Internal Medicine Pulmonary Disease; Radiology Diagnostic Radiology; ADMIT Internal Medicine; ATTEND Internal Medicine
PROC: 30233N1 Transfusion of Nonautologous Red Blood Cells into Peripheral Vein, Percutaneous Approach (ICD-10-PCS; principal; 2021-01-30)
PROC: 07DR3ZX Extraction of Iliac Bone Marrow, Percutaneous Approach, Diagnostic (ICD-10-PCS; 2021-02-09)
DX: D47.2 Monoclonal gammopathy (principal); I50.33 Acute on chronic diastolic (congestive) heart failure; J96.01 Acute respiratory failure with hypoxia; R57.1 Hypovolemic shock; I26.99 Other pulmonary embolism without acute cor pulmonale; D68.59 Other primary thrombophilia; T45.515A Adverse effect of anticoagulants, initial encounter; Z20.822 Contact with and (suspected) exposure to COVID-19; Z96.652 Presence of left artificial knee joint; J45.909 Unspecified asthma, uncomplicated; K14.8 Other diseases of tongue; K64.2 Third degree hemorrhoids; I08.1 Rheumatic disorders of both mitral and tricuspid valves; I27.20 Pulmonary hypertension, unspecified; D63.8 Anemia in other chronic diseases classified elsewhere; E03.9 Hypothyroidism, unspecified; I95.89 Other hypotension; R53.81 Other malaise; D50.9 Iron deficiency anemia, unspecified; J45.30 Mild persistent asthma, uncomplicated; K44.9 Diaphragmatic hernia without obstruction or gangrene; G89.29 Other chronic pain; M54.9 Dorsalgia, unspecified; K58.9 Irritable bowel syndrome, unspecified; E73.9 Lactose intolerance, unspecified; I11.0 Hypertensive heart disease with heart failure; S01.552A Open bite of oral cavity, initial encounter; E11.649 Type 2 diabetes mellitus with hypoglycemia without coma; Z90.710 Acquired absence of both cervix and uterus; Z86.718 Personal history of other venous thrombosis and embolism; Z88.0 Allergy status to penicillin; Z88.2 Allergy status to sulfonamides; Z88.8 Allergy status to other drugs, medicaments and biological substances; Z91.040 Latex allergy status; Z83.3 Family history of diabetes mellitus; Z82.49 Family history of ischemic heart disease and other diseases of the circulatory system; Y92.89 Other specified places as the place of occurrence of the external cause; Z82.3 Family history of stroke; Z80.0 Family history of malignant neoplasm of digestive organs
CPT/HCPCS: 10078; 10081; 10203; 85076

== ENCOUNTER 2021-03-06 16:25 | Inpatient (IN) | payer OTHER, BC ==
[~2021-03-06] VITALS: Ht 162.6 cm; Wt 56.7 kg
[~2021-03-06 16:25] MED LIST changes: +CARVEDILOL6.25 M1 PO; +ELIQUIS5 M1 PO; +KLOR-CON M2020 MEQ PO; +NORVASC5 MG PO; +PREDNISONE 10 M10 M1 PO; +SPIRONOLACTONE50 MG PO; +SYNTHROID100 MC1 PO
[2021-03-06 16:26] VITALS: BP 153/100
[2021-03-06 16:58] LABS: BE(vivo) -0.9 mmol/L (-2 to +3); HCO3 23.3 mmol/L (22.0-26.0); PCO2 VENOUS 37.2 mmHg (41.0-51.0); PO2 VENOUS 42.2 mmHg (35.0-45.0)
[2021-03-06 17:00] LABS: ABSOLUTE NEUTROPHILS 3.6 thou/uL (1.4-8.2); BASOPHILS 1.2 % (0.0-2.0); EOSINOPHILS 0.5 % (0.0-3.0); HEMATOCRIT 36.3 % (37.0-47.0); HEMOGLOBIN 12.3 gm/dL (12.0-15.0); LYMPHOCYTES 53.1 % (24.0-44.0); MCH 34.6 pg (26.0-34.0); MCHC 33.9 g/dL (28.0-37.0); MCV 102.1 fL (80.0-100.0); PLATELET COUNT 168 thou/uL (150-400); POLYS 40.2 % (36.0-66.0); RBC 3.55 mil/uL (4.20-5.00); RDW 17.5 % (10.5-14.5)
[2021-03-06 17:09] LABS: CALCIUM 9.5 mg/dL (8.5-10.1); CREATININE 1.6 mg/dL (0.6-1.0); POTASSIUM 4.5 mmol/L (3.5-5.1)
[2021-03-06 17:18] LABS: TROPONIN-I 0.07 ng/mL (<0.06)
[2021-03-06] MEDS ORDERED: SIMETHICON CHEW80 M1 PO (18:24)
[2021-03-06] MEDS ORDERED: PROTONIX40 M2 PO (18:25)
[2021-03-06] MEDS ORDERED: HYDROCODON-ACE1 EAC7 PO (18:26)
[2021-03-06] MEDS ORDERED: NEURONTIN100 MG PO (18:26)
[2021-03-06] MEDS ORDERED: BENTYL 10 MG CA10 MG PO (18:27)
[2021-03-06] MEDS ORDERED: ELIQUIS5 MG PO (18:28)
[2021-03-06 19:26] VITALS: BP 130/62
[2021-03-06 19:38] VITALS: BP 123/60
[2021-03-06 20:54] VITALS: BP 121/69
--- NOTE | 2021-03-07 02:22 | NUR ---
PT ADMITTED INTO THE UNIT FROM THE ED AT 2030.PT IS A/O X4.PT IS FROM [facility].PT USES A WALKER AT FACILITY TO AMBULATE.PT ADMITTED TO THE UNIT WITH C/O INCREASE SOA AND COLD AND LOW SAT .PT PLACED ON O2 AND PRESENTL ON 2L OF O2 VIAL NC.PT HAS A VASQUEZ CATHETER IN PLACE.PT C/O BLE PAIN AND PAIN MANAGED WITH NORCO.PICTURES OF WOUNDS ON BLE ,GREAT RT TOE AND BUTTOCKS TAKEN.WILL CONTINUE TO MONITOR PER POC
[2021-03-07 02:44] LABS: HEMATOCRIT 34.7 % (37.0-47.0); HEMOGLOBIN 11.4 gm/dL (12.0-15.0); MCH 33.7 pg (26.0-34.0); MCHC 32.9 g/dL (28.0-37.0); MCV 102.3 fL (80.0-100.0); RBC 3.39 mil/uL (4.20-5.00); RDW 18.5 % (10.5-14.5); WBC 5.8 thou/uL (4.0-11.0)
[2021-03-07 03:00] LABS: CREATININE 1.6 mg/dL (0.6-1.0); POTASSIUM 4.2 mmol/L (3.5-5.1)
[2021-03-07 07:40] VITALS: BP 129/73
[2021-03-07 16:00] VITALS: BP 129/77
[2021-03-07 19:32] VITALS: BP 121/80
--- NOTE | 2021-03-07 20:02 | NUR ---
Assumed pt care this am, VS stable. Medication for gerd restarted as per MD. Wound care done, awaiting wound MD visit. ON 2L of O2 via NC, family at the bed side for the whole shift. UA sent to the lab, FC in place draining yellow urine. POC followed, pain is managed with medications , pt repositioned frequently when pt allowed. Poor intake of meals, ordered supplements (ensure apple clear) Endorsed to the night nurse.
[2021-03-07 20:22] LABS: URINE BILIRUBIN NEGATIVE (Negative); URINE BLOOD 3+ (Negative); URINE CLARITY CLEAR; URINE COLOR YELLOW; URINE GLUCOSE-RANDOM* NEGATIVE (Negative); URINE KETONES NEGATIVE (Negative); URINE NITRITE-REFLEX NEGATIVE (Negative); URINE PROTEIN (DIPSTICK) 1+ (Negative); URINE UROBILINOGEN 0.2 E.U./dl (0.2-1.0)
[2021-03-07 20:29] LABS: URINE LEUKOCYTES-REFLEX 3+ (Negative)
[2021-03-07 20:37] LABS: HYALINE CASTS >10 Many /LPF (None Seen); MUCUS 0-3 Light strn/LPF (None Seen)
[2021-03-07 20:38] LABS: YEAST-REFLEX Present (None Seen)
[2021-03-07 20:39] LABS: SQUAMOUS 0-3 Few /LPF (0-3); URINE WBC-REFLEX >25 Many /HPF (0-5); WBC CLUMPS Few (None Seen)
[2021-03-07 20:40] LABS: BACTERIA-REFLEX >30 Many /HPF (None Seen); URINE RBC >20 Many /HPF (0-2)
[2021-03-07 20:41] LABS: CRYSTALS None Seen /LPF (None Seen)
--- NOTE | 2021-03-08 04:09 | NUR ---
ASSUMED CARE OF PT AT SHIFT CHANGE. PT IS AOX4 AND LETS NEEDS BE KNOWN. FALL PRECAUTION ON PLACE. 2L O2 VIA NC CONTINUED. VASQUEZ IN PLACE AND IS PATIENT. PT RUNS SR ON TELE. PT ENCOURAGED TO TURN. PT REPORTED SOME PAIN AND WAS TREATED WITH PRN PAIN MEDS. PT DENIED NAUSEA. ASSESSMENT CHARTED. PT WAS ABLE TO GET COMFORTABLE AND SLEEP PART OF THE SHIFT. VSS AND NO S/S OF ACUTE DISTRESS. WILL CONTINUE TO MONITOR FOR CHANGES.
[2021-03-08 07:25] VITALS: BP 116/81
--- NOTE | 2021-03-08 09:21 | HC ---
[facility] [place] [address] CONSULTATION Name: KISHA STRICKLAND Room #: 450-P ADM IN M.R.#: [id number] Admission: 03/06/21 Attend Phys: Alhaji Oquendo MD Discharge: Date of : 43 Report #: [id number] THIS REPORT FOR: cc: Lisa Lane,Tyrone Gray MD ~ DATE OF SERVICE: 03/07/2021 CARDIOLOGY CONSULTATION INDICATION: Dyspnea. HISTORY OF PRESENT ILLNESS: This is a 75-year-old female with a past medical history significant for chronic diastolic heart failure, severe asthma, pulmonary hypertension, previous history of PE, on chronic anticoagulation therapy and generalized debility, presenting with increasing dyspnea and weakness. She was recently hospitalized at [facility], [facility]. The patient reports waking up with shortness of breath. In transit, she was given steroids by EMS with an improvement in her symptoms. Chest x-ray revealed no evidence for heart failure, a large hiatal hernia. She reports having some chest pain, worse with eating meals. There is no history of fever or chills. PAST MEDICAL HISTORY: Diastolic heart failure, severe asthma, pulmonary hypertension, remote history of PE, generalized weakness. ALLERGIES: Please see MAR for full listing. MEDICATIONS: Include spironolactone 50 mg daily, torsemide 40 mg, potassium, prednisone, Eliquis 5 mg twice a day, Symbicort, Flonase, simethicone. SOCIAL HISTORY: Negative for tobacco use, presently residing at [facility]. FAMILY HISTORY: Negative for premature CAD. REVIEW OF SYSTEMS: A full 10-point review of systems performed. Only the pertinent positives and negatives are described in the HPI. PHYSICAL EXAMINATION: VITAL SIGNS: Blood pressure is 120/70, heart rate is 90 beats per minute. GENERAL APPEARANCE: This is an elderly appearing female in no acute distress. HEENT: Normocephalic, atraumatic. Oral mucosa moist. NECK: Supple. LUNGS: Diminished breath sounds at bases. [facility] [address] [place] [address] CONSULTATION Name: KISHA STRICKLAND Room #: [facility]-P ADM IN M.R.#: [id number] Admission: 03/06/21 Attend Phys: Alhaji Oquendo MD Discharge: Date of : 43 Report #: [id number] CARDIAC: S1, S2 positive. ABDOMEN: Soft, nontender. EXTREMITIES: No cyanosis, no edema. ECG reveals sinus rhythm. LABORATORY VALUES: White count 5.8, hemoglobin is 11.4. Lactic acid is 4.0. Troponin 0.07. ASSESSMENT AND PLAN: 1. Dyspnea/asthma/pulmonary hypertension, her symptoms improved with steroids. Doubt congestive heart failure is contributing a significant factor to her current state. At this time, she complains of weakness, rule out an infectious process. 2. Congestive heart failure/diastolic dysfunction, appears to be stable at this time. We will continue with the present medical regimen of torsemide and Aldactone. Dr. Mckeon did see in the morning. 3. Chest pain/atypical, probably related to large hiatal hernia. She has exacerbation of her pain with eating. Troponin of 0.7, may be related to supply/demand mismatch. 4. Pulmonary embolism, continue on anticoagulation therapy. <ELECTRONICALLY SIGNED> By: Tyrone Andrade MD 03/08/21 0921 1130 1847 Tyrone Andrade MD /nt
--- NOTE | 2021-03-08 09:27 | EKG ---
[place] [address] [facility] [place] [address] ELECTROCARDIOGRAM REPORT Name: KISHA STRICKLAND Room #: 450-P ADM IN M.R.#: [id number] Admission: 03/06/21 Attend Phys: Alhaji Oquendo MD Discharge: Date of : 43 Report #: [id number] [facility] ED Test Date: 2021-03-06 Test Time: 16:34:50 Pat Name: KISHA STRICKLAND Department: Room: 450 Gender: F Sourcing Specialist: YONI : 1945 Requested By: Linus Soni Order Number: [id number] MD: Jl Mckeon Measurements Intervals [place] Rate: 108 P: 58 SC: 135 QRS: -22 QRSD: 101 T: 161 QT: 327 QTc: 439 Interpretive Statements Sinus tachycardia Poor R wave progression Nonspecific ST segment abnormality Artifact in lead(s) I,II,aVR,aVL,aVF Compared to ECG 09/02/2020 12:05:22 Heart rate has increased Electronically Signed On 03-08-2021 9:27:21 CDT by Jl Mckeon [email or web address] <ELECTRONICALLY SIGNED> By: Jl Mckeon MD, [facility] 03/08/21 0927 1634 1634 Jl Mckeon MD, [facility] /EPI
--- NOTE | 2021-03-08 13:25 | NUR ---
PT ADMITTED RELATED TO DYSPNEA, ASTHMA, AND CHF. CM REVIEWED CHART AND SPOKE WITH CARE TEAM. CM MET WITH PT AT BEDSIDE THIS DAY. PT APPEARED TO BE A&O X4. CM ROLE INTRODUCED. PT INDICATED THAT ASSISTANT PROFESSOR OF GERMAN SHE HAD BEEN AT [facility]. PRIOR TO THAT PT HAD BEEN AT HOME FOR A FEW DAYS. PT INDICATED SHE HAD BEEN USING A FWW TO ASSIST WITH MOBILITY ASSISTANT PROFESSOR OF GERMAN AND THAT SHE HAD BEEN ION SOME O2 AT SKILLED ASSISTANT PROFESSOR OF GERMAN BUT HADN'T HAD O2 AT HOME. PT'S PCP IS DR. KATELYN SILVERMAN. PT'S SPOUSE AND HER CHILDREN ARE GOOD CONTACTS FOR HER DTR EUGENE SALDANA. PT INDICATED SHE PLANS TO RETURN TO [facility] TO CONTINUE SKILLED POST ACUTE CARE STAY ONCE MEDICALLY STABLE. CLINCIAL UPDATE TO BE SENT TO FACILITY. CARDIOLOGY AND ONCOLOGY CONSULTED. CM FOLLOWING REGARDING DC NEEDS.
--- NOTE | 2021-03-08 15:01 | NUR ---
ASSUMED CARE OF PT AT 0700 THIS MORNING. PT WAS ADMITTED FOR CHF COMPLICATIONS AND PRESSURE ULCERS ON BILAT CALVES. PT IS A/OX4, C/O GAS AND HEARTBURN DUE TO HIATAL HERNIA. LUNGS ARE CLEAR IN UPPER MARX AND DIMINISHED IN LOWER. SKIN IS W/D AND APPROPRIATE TO RACE. NO TENTING NOTED. CR<3SEC, DISTAL PULSES ARE PRESENT. DRESSING ON CALVES CDI, ULCERS NOTED IN SACRUM AREA DRESSED CDI. OTHERWISE SKIN IS INTACT. ABD SOFT NONTENDER. IV IN RIGHT WRIST WITH DERMAGUARD. ASSESSMENT OTHERWISE UNREMARKABLE. CALL LIGHT AND OTHER NEEDS WITHIN REACH. PT AND OT ARE TO WORK WITH PT LATER IN THE DAY.
[2021-03-08 15:10] VITALS: BP 112/75
[2021-03-08 20:38] VITALS: BP 110/67
--- NOTE | 2021-03-09 02:49 | NUR ---
ASSUMED CARE OF PT AT SHIFT CHANGE. PT IS AOX4 AND LETS NEEDS BE KOWN. FALL PRECAUTION IN PLACE. BLE DRESSING CHANGED PER ORDER. LAP IN PLACE. PT TURNED Q2-3HRS. ASSESSMENT CHARTED. PT WAS ABLE TO GET COMFORTABLE AND SLEEP PART OF THE SHIFT. VASQUEZ IN PLACE AND PATIENT. PT WAS ABLE OT GET COMFORTABLE AND SLEEP PART OF THE SHIFT. VSS AND S NO S/S OF ACUTE DISTRESS. WILL CONTINUE TO MONITOR.
[2021-03-09 05:46] LABS: CALCIUM 8.9 mg/dL (8.5-10.1); CREATININE 1.3 mg/dL (0.6-1.0); POTASSIUM 5.3 mmol/L (3.5-5.1)
--- NOTE | 2021-03-09 07:20 | HC ---
[facility] [place] [address] CONSULTATION Name: KISHA STRICKLAND Room #: 450-P ADM IN M.R.#: [id number] Admission: 03/06/21 Attend Phys: Alhaji Oquendo MD Discharge: Date of : 43 Report #: [id number] THIS REPORT FOR: cc: Lisa Lane Richard James MD ~ REASON FOR CONSULTATION: Probable amyloid and light chain myeloma. 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 During that hospitalization, the patient was found to have a serum immunofixation showing monoclonal free lambda light chain with a serum free light chain ratio of 0.58465 with kappa light chain 15.3 and serum lambda 1463.2. Skeletal survey did not reveal any evidence of myelomatous involvement. A serum protein electrophoresis did not reveal an M-spike. Beta 2 microglobulin is slightly elevated at 4.9. Urine protein electrophoresis showed 68% involvement by monoclonal protein, though the urine protein on this was 69.5 spot urine. Urine AISHA was positive for Bence Morales lambda type protein. The patient underwent a bone marrow biopsy on 02/09/2021 which revealed 40-50% involvement by lambda restricted plasma cells. Less than 1% blasts. No evidence of amyloid on the material sample. Cytogenetics showed an abnormality in the T11:14 translocation which is generally associated with a favorable prognosis. The patient had been at a skilled facility, I believe [facility] for the last several weeks, waiting to get stronger. We talked to her about coming in for an appointment, but she had not yet done so. The patient, at this time, does have some chest discomfort that she describes as gas pain. Denies any fevers, chills, was weak and using a walker. She is getting stronger at the outside facility. No new arm or leg swelling. No new bowel difficulties. No blood in the urine or stool that she was aware of. PAST MEDICAL HISTORY: Notable for the lambda light chain myeloma with suspected amyloid involvement ____, the bone marrow biopsy was negative for amyloid, also history of pulmonary emboli, on about 02/04/2021 with a left upper extremity superficial thrombophlebitis. Also, history of cardiac dysfunction with diastolic dysfunction, described as severe with a PA pressure of 53 mmHg. Also, hypothyroid. Also, hemorrhoids. Also, some weakness, lung disease, hysterectomy, knee replacement and laminectomy. She also had a DVT in 2003 and again in 2011 and had been on chronic anticoagulation in the past. MEDICATIONS: At this time in the hospital currently include ceftriaxone 2 grams IV daily, potassium chloride 20 mEq daily, torsemide 40 daily, spironolactone 50 mg daily, pantoprazole 40 daily, montelukast sodium 10 mg at bedtime, gabapentin 100 daily, p.r.n. simethicone 80 b.i.d., magnesium hydroxide [address] [address] CONSULTATION Name: KISHA STRICKLAND Room #: 450-P ADM IN M.R.#: [id number] Admission: 03/06/21 Attend Phys: Alhaji Oquendo MD Discharge: Date of : 43 Report #: [id number] p.r.n., levothyroxine 100 mcg daily, apixaban 5 mg b.i.d., hydrocodone 1 tab q. 6 p.r.n. PHYSICAL EXAMINATION: GENERAL: The patient appears her stated age, is an elderly -Bulgar[place] female in bed, having some chest discomfort that she thinks is gas related. VITAL SIGNS: Height is 5 feet 4 inches, which is 162.6 cm. Weight is 125 pounds or 56.7 kilograms. Recent blood pressure is 116/81 with a pulse of 88, respirations 18, temperature afebrile at 97.6, O2 sat 93%. MOOD: She is pleasant, conversant. NEUROLOGIC: Speech and thought pattern appear to be normal, though she is tired appearing. LUNGS: Appear clear anteriorly without any rhonchi or wheezes. Unlabored, symmetric. HEART: Appears regular rate. LYMPHATICS: No enlarged lymph nodes in the supraclavicular, cervical, axillary or inguinal region. ABDOMEN: Scaphoid, no masses. EXTREMITIES: Without clubbing or cyanosis. Note, she does have a dressing on her right lower calf that she describes as a bedsore. It was not unwrapped or examined. ASSESSMENT AND PLAN: 1. Lambda light chain myeloma with no definite amyloid involvement of bone marrow, but heart has not been biopsied, does have a quite elevated BNP. We would like to consider beginning Cytoxan, Velcade, dexamethasone plus or minus daratumumab as an outpatient. Depending on how she does in the next day or two, might consider steroids single agent as a temporizing manner. 2. Breathing difficulties, possible infection. Aerosols and antibiotics per others. 3. Mild anemia at 11.4. Continue monitoring. 4. Heart failure. Continues diuretics per others. 5. History of pulmonary embolism and DVTs, on apixaban. 6. Chronic kidney disease with a creatinine of 1.6. Continue to monitor. 7. Hypothyroid, replace. 8. Electrolyte abnormalities, replace with potassium and other substances. We will follow. 9. Weakness. Continue rehab efforts. <ELECTRONICALLY SIGNED> By: Adam Pond MD 03/09/21 0720 0823 [id number] Adam Pond MD /nt
[2021-03-09 07:37] VITALS: BP 133/54
--- NOTE | 2021-03-09 08:58 | NUR ---
Note Given: Y Facility List Provided:Y Facility Macy: None chosen at this time Carley Rivas NP discussed BPCI with this pt 03/09/2021
--- NOTE | 2021-03-09 11:41 | NUR ---
FAXED CLINICAL UPDATE TO [facility] RECEIVED CONFIRMATION AND LEFT MSG WITH TANVI IN ADM.
--- NOTE | 2021-03-09 14:26 | NUR ---
Assumed pt care at 7am.Pt in bed resting and waiting to order breakfast from kitchen.Assessment completed.vss.Pt c/o abdominal cramping but denied need for medication.Assisted with tray set up at all meals.Fair appetite noted.Pt tolerated meds as ordered.Dr Kaufman and Jere here,order noted.Assisted pt to bsc and small stool noted.Pericare done.Pt has adequate u/o.Pt up in chair resting with o2 on.No soa noted. Will continue to monitor.
--- NOTE | 2021-03-09 15:05 | NUR ---
CARE TEAM INDICATED THAT PT IS SLOWLY PROGRESSING TOWARD GOAL OF DISCHARGE BACK TO SKILLED REHAB AT [facility]. CLINICAL UPDATE SENT TO THE FACILITY THIS DAY. CM FOLLOWING REGARDIGN DC PLANNING.
[2021-03-09 17:37] VITALS: BP 143/62
[2021-03-09 19:22] VITALS: BP 136/65
--- NOTE | 2021-03-10 02:42 | NUR ---
PT CARE ASSUMED WITH PT UP IN CHAIR WATCHING TV AT 1900.PT IS A/O X4.PT IS UP WITH X1 ASSIST TO BSC,CHAIR AND BED.PT C/O HEART BURN AND HAD SIMETHICONE WITH RELIEF.PT IS ON 2L OF O2 VIA NC.IV ACCESS ON RT FA SL.WOUND DRESSING ON BLE ,RT GREAT TOE C/D/I.PT ABLE TO TURN AND REPOSITION SELF AND PT ENCOURAGED TO LAY OFF BOTTOM AND CHANGE SIDES.PT HAS A VASQUEZ CATHETER IN PLACE DRAINING OK.WILL CONTINUE TO MONITOR PER POC
[2021-03-10 07:15] VITALS: BP 143/65
[2021-03-10 07:20] VITALS: BP 143/65
--- NOTE | 2021-03-10 14:40 | NUR ---
CM CALLED AND SPOKE WITH TANVI IN ADMISSIONS AT [facility] THEY HAD RECEIVED CLINICAL UPDATES AND INDICATED THAT THEY WOULD BE ABLE TO ACCEPT PT ONCE MEDICALLY STABLE BUT THAT PT IS VERY LOW LEVEL AND THEY LIKELY WON'T BE ABLE TO SKILL HER VERY LONG. ADDITINAL CLINICAL UPDATES FAXED FOR THEM TO RUN MEDS. COVID TEST TO BE DONE. CM FOLLOWING REGARDING POSSIBLE DC BACK TO [facility] SKILLED TOMORROW.
[2021-03-10 15:45] VITALS: BP 168/53
--- NOTE | 2021-03-10 16:00 | NUR ---
FAXED CLINICAL UPDATE TO [facility] RECEIVED CONFIRMATION AND LEFT MSG WITH TANVI IN ADM.
[2021-03-10 16:06] LABS: KAPPA FREE LIGHT CHAINS 10.2 mg/L (3.3-19.4); KAPPA/LAMBDA RATIO 0.01 (0.26-1.65); LAMBDA FREE LIGHT CHAINS 803.4 mg/L (5.7-26.3)
--- NOTE | 2021-03-10 16:24 | NUR ---
ASSUMED PT CARE AROUND 0700. PT ALERT X ORIENTED X4. ON 2L/O2/NC. IV RT FA SALINE LOCKED.VASQUEZ IN PLACE.UP WITH 1 X PERSON ASST AND WALKER. ACCU CHECK AND ACHS. FAMILY IN THE ROOM. ON TELE WITH NSR. NO C/O PAIN. ON HEART HEALTHY DIET. FALL PRECAUTION IN PLACE. CALL LIGHT IN REACH. WILL CALL APPROPRIATELY. WILL CONTINUE TO MONITOR.
[2021-03-10 20:17] VITALS: BP 125/81
--- NOTE | 2021-03-11 02:12 | NUR ---
PT CARE ASSUMED WITH PT SITTING IN THE CHAIR .PT IS A/O X4.PT IS UP WITH X1 ASSIST TO THE BSC AND CHAIR.PT IS ON 2L OF O2 VIA NC.PT C/O PAIN AND PAIN MANAGED WITH NORCO.PT APPEAR TO BE IN THE ACUTE DISTRESS TILL THIS POINT.WILL CONTINUE TO MONITOR
[2021-03-11 08:52] VITALS: BP 145/71
--- NOTE | 2021-03-11 10:05 | HC ---
[facility] [place] [address] CONSULTATION Name: KISHA STRICKLAND Room #: 450-P ADM IN M.R.#: [id number] Admission: 03/06/21 Attend Phys: Alhaji Oquendo MD Discharge: Date of : 43 Report #: [id number] THIS REPORT FOR: cc: Lisa Lane,Monty Kemp MD ~ DATE OF SERVICE: 03/08/2021 CHIEF COMPLAINT: Coccyx and right gluteal pressure ulcerations. HISTORY OF PRESENT ILLNESS: This is a 75-year-old female patient with a history of congestive heart failure, was admitted with increasing shortness of breath and weakness. She lives at [facility] where she has been for the last 2 weeks. She had been previously hospitalized with congestive heart failure. She was noted to have pressure ulcerations on her buttocks and calves and great toe and I have been asked to see her with regard to wound care. The patient has some pain associated with this. PAST MEDICAL HISTORY: Positive for a history of congestive heart failure, [place] [employer] class IV, history of diabetes type 2, history of pulmonary embolus, hypertension, respiratory failure. MEDICATIONS: Include spironolactone, torsemide, K-Dur, Synthroid, prednisone, vitamin D3, Eliquis. ALLERGIES: PENICILLIN, SULFA, LATEX, TRAMADOL. SOCIAL HISTORY: Negative for alcohol or tobacco use. FAMILY HISTORY: Noncontributory. REVIEW OF SYSTEMS: CONSTITUTIONAL: The patient denies fever, chills or weight loss. NEUROLOGICAL: The patient denies focal weakness, numbness or tingling. EYES: The patient denies visual changes, redness, or drainage. ENT: The patient denies earache, nasal drainage, sore throat. CARDIOVASCULAR: The patient denies chest pain or palpitations or diaphoresis. PULMONARY: The patient does complain of increasing shortness of breath. GASTROINTESTINAL: The patient denies nausea, vomiting, diarrhea or abdominal pain. ORTHOPEDIC: The patient is aware of painful ulcerations on her calves. Other systems in a 14-point review of systems are negative. PHYSICAL EXAMINATION: VITAL SIGNS: At this time include temperature 36.4, pulse 48, respiratory rate [facility] [address] [place] [address] CONSULTATION Name: KISHA STRICKLAND Room #: [address] [place] [address] IN ..#: [id number] Admission: 03/06/21 Attend Phys: Alhaji Oquendo MD Discharge: Date of : 43 Report #: [id number], blood pressure 116/81. GENERAL: This is a chronically ill-appearing female patient who appears to be in moderate discomfort. HEAD: Normocephalic. NECK: Supple. LUNGS: Diminished. HEART: Regular. ABDOMEN: Soft. Examination of the pelvic region and gluteal region demonstrates stage 3 pressure ulcer to the coccyx as well as stage 3 pressure ulcerations to the right gluteal region. These are relatively clean with granulation tissue and relatively superficial with no exposed deep structures. EXTREMITIES: Examination of the lower extremities demonstrates that she has areas of dark discoloration and tenderness to both calves posteriorly. These appear to be blotchy and she appears to be developing another area more anterior as well. She has diminished distal pulses. She has an ulceration on the dorsal nail bed of the right great toe. It appears that the nail has been previously trimmed. NEUROLOGIC: The patient is alert and moving all 4 extremities. LABORATORY DATA: Include white blood cell count 5.8 with a hemoglobin of 11.4. Sodium 136, potassium is 4.2, chloride 99, CO2 of 27, BUN 27, creatinine 1.6, glucose 173. CLINICAL IMPRESSION: 1. Stage 3 pressure ulceration to the coccyx. 2. Stage 3 pressure ulceration of the right buttock. 3. Diabetic foot ulceration to the right great toe. 4. Apparent tissue injury to the posterior calves. 5. Possible peripheral arterial disease based on clinical exam. 6. Type 2 diabetes mellitus. 7. 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 8. Acute on chronic diastolic congestive heart failure. 9. Recent pulmonary embolus. RECOMMENDATIONS: At this point in time, recommend a low air loss surface with q. 2 hour turning and repositioning. We will recommend Z-guard to the gluteal ulceration and to the coccyx, otherwise left open to air. She will need q. 2 hour turning and repositioning and aggressive nutritional support. We will recommend heel protectors to be in place at all times. We will recommend topical gentamicin ointment to the right great toe ulceration. Recommend gentamicin, Xeroform, ABD and Kerlix applied to the calves bilaterally. Recommend lower extremity arterial Dopplers to evaluate blood flow. Continue with medical management of her diabetes and other underlying medical issues. [address] [address] CONSULTATION Name: HERIBERTOKERENKISHA CRANDALL Room #: 450-P [facility] IN M.R.#: [id number] Admission: 03/06/21 Attend Phys: Alhaji Oquendo MD Discharge: Date of : 43 Report #: [id number] Hematology/Oncology has been consulted regarding her amyloidosis and multiple myeloma. I appreciate being asked to see her in consultation. <ELECTRONICALLY SIGNED> By: Monty Zamarripa MD 03/11/21 1005 1023 1145 Monty Zamarripa MD /nt
[2021-03-11] MEDS ORDERED: DEXAMETHASONE 44 M1 PO (11:46)
[2021-03-11] MEDS ORDERED: CLOTRIMAZOLE10 MG PO (11:46)
--- NOTE | 2021-03-11 14:07 | NUR ---
CARE TEAM INDICATED THAT PT IS MEDICALLY STABLE TO DISCHARGE TO [facility] THIS DAY. CHART COPY ORDRED. ORDERS FAXED. VAN TRANSPORT ARRANGED FOR 1600. CM NOTIOFIED PT AND SPOUSE AT BEDSIDE THIS AFTERNOON THEY ARE BOTH AWARE AND AGREEABLE. NO OTHER CM INTERVETION INIDCATED CASE CLOSED.
--- NOTE | 2021-03-11 16:30 | NUR ---
Assumed pt care this am VS stable, wound care and dressing change done. Pain is managed with medication partial relief is noted. FC in place draining light yellow urine. POC followed with nbo signs or verbalizations of distress noted. REport given to facility since pt is dc, IV and fc removed. Daughter at the bed side, pt is now dc.
--- NOTE | 2021-03-12 10:49 | NUR ---
BPCI LETTER GIVEN TO PATIENT AT BEDSIDE FOR FAMILY.
== END 2021-03-11 16:38 | DRG 291 ==
LOC: ER 16:25 → 4W 17:47 → EROBS 17:47 → 4W 19:39
PROVIDERS: Emergency Medicine; Internal Medicine; Internal Medicine Hematology & Oncology; ADMIT Hospitalist; ATTEND Hospitalist
DX: I13.0 Hypertensive heart and chronic kidney disease with heart failure and stage 1 through stage 4 chronic kidney disease, or unspecified chronic kidney disease (principal); I50.33 Acute on chronic diastolic (congestive) heart failure; L89.153 Pressure ulcer of sacral region, stage 3; L89.313 Pressure ulcer of right buttock, stage 3; J96.01 Acute respiratory failure with hypoxia; E43 Unspecified severe protein-calorie malnutrition; C90.00 Multiple myeloma not having achieved remission; R64 Cachexia; L97.229 Non-pressure chronic ulcer of left calf with unspecified severity; L97.219 Non-pressure chronic ulcer of right calf with unspecified severity; E85.9 Amyloidosis, unspecified; Z20.822 Contact with and (suspected) exposure to COVID-19; Z86.718 Personal history of other venous thrombosis and embolism; J45.909 Unspecified asthma, uncomplicated; Z96.652 Presence of left artificial knee joint; I27.20 Pulmonary hypertension, unspecified; D64.9 Anemia, unspecified; N18.9 Chronic kidney disease, unspecified; E03.9 Hypothyroidism, unspecified; E11.621 Type 2 diabetes mellitus with foot ulcer; E11.65 Type 2 diabetes mellitus with hyperglycemia; E11.51 Type 2 diabetes mellitus with diabetic peripheral angiopathy without gangrene; K44.9 Diaphragmatic hernia without obstruction or gangrene; K58.9 Irritable bowel syndrome, unspecified; R53.81 Other malaise; E55.9 Vitamin D deficiency, unspecified; E11.22 Type 2 diabetes mellitus with diabetic chronic kidney disease; L97.519 Non-pressure chronic ulcer of other part of right foot with unspecified severity; S80.12XA Contusion of left lower leg, initial encounter; S80.11XA Contusion of right lower leg, initial encounter; X58.XXXA Exposure to other specified factors, initial encounter; Z83.3 Family history of diabetes mellitus; Z82.3 Family history of stroke; Z86.711 Personal history of pulmonary embolism; Z90.710 Acquired absence of both cervix and uterus; Z88.2 Allergy status to sulfonamides; Z88.8 Allergy status to other drugs, medicaments and biological substances; Z91.040 Latex allergy status; Z68.21 Body mass index [BMI] 21.0-21.9, adult; Z82.49 Family history of ischemic heart disease and other diseases of the circulatory system; Y93.89 Activity, other specified; Y92.89 Other specified places as the place of occurrence of the external cause; Y99.8 Other external cause status
CPT/HCPCS: 10045